=== PATIENT | female | born 1945 | race Caucasian/White ===

== ENCOUNTER 2018-01-15 06:13 | Day surgery (SDC) | payer MEDICARE, OTHER ==
[~2018-01-15 06:13] MED LIST: Bupivacaine 0.25% 30 ML SDV ONE; Iodine/Sodium Iodide 2% Tincture 30 ML Bottle ONE; Vancomycin 1 GM SDV ONE; ceFAZolin 1 GM Vial ONE
[2018-01-15] MEDS ORDERED: Scopolamine 1 MG Transdermal Patch TOP ONE (06:27)
[2018-01-15] MEDS ORDERED: Ketorolac 15 MG/ML SDV IVPUSH PRN (06:34)
[2018-01-15] MEDS ORDERED: Sennosides 8.6 MG Tab PO PRN (06:34)
[2018-01-15] MEDS ORDERED: diphenhydrAMINE 50 MG/ML SDV IVPUSH PRN (06:34)
[2018-01-15] MEDS ORDERED: Bisacodyl 5 MG Tab PO PRN (06:34)
[2018-01-15] MEDS ORDERED: Morphine 8 MG, EPINEPHrine 0.3 MG, Cefuroxime 750 MG, Ketorolac 30 MG, Sodium Chloride ... ONE ×5 (06:34)
[2018-01-15] MEDS ORDERED: Ondansetron 4 MG/2 ML SDV IVPUSH PRN ×2 (06:34→07:48)
[2018-01-15] MEDS ORDERED: Morphine 2 MG/ML Syringe IVPUSH PRN (06:34)
[2018-01-15] MEDS ORDERED: Cyclobenzaprine 10 MG Tab PO PRN (06:34)
[2018-01-15] MEDS ORDERED: Magnesium Hydroxide 400 MG/5 ML Susp 30 ML Cup PO PRN (06:34)
[2018-01-15] MEDS ORDERED: Naloxone 0.4 MG/ML SDV IVPUSH PRN (06:34)
--- NOTE | 2018-01-15 06:34 | PCM.PREANE ---
Preanesthetic Assessment - Anesthesia/Transfusion/Family Hx Anesthesia History: Prior Anesthesia Reaction Type of Anesthesia Reaction: Excessive Nausea/Vomiting Family History of Anesthesia Reaction: No Transfusion History: No Prior Transfusion(s) Type of Transfusion Reactions: Reports: Unknown - Review of Systems General: No Symptoms Pulmonary: No Symptoms Cardiovascular: No Symptoms Gastrointestinal: No Symptoms Neurological: No Symptoms Other: Reports: Easy Bruising, Diabetes - Physical Assessment NPO Status Date: 01/14/18 NPO Status Time: 21:00 Pulse: 82 O2 Sat by Pulse Oximetry: 92 Respiratory Rate: 16 Blood Pressure: 125/59 Temperature: 97.7 F Height: 5 ft 6 in Weight: 93.9 kg ASA Class: 2 Mental Status: Alert & Oriented x3 Airway Class: Mallampati = 1 Dentition: Reports: Normal Dentition Thyro-Mental Finger Breadths: 3 Mouth Opening Finger Breadths: 3 ROM/Head Extension: Full Lungs: Clear to Auscultation, Normal Respiratory Effort Cardiovascular: Regular Rate, Regular Rhythm - Lab Values: Laboratory Last Values PT 10.7 SECONDS (8.0-13.0) 01/03/18 11:21 INR 1.00 01/03/18 11:21 APTT 27 SECONDS (22-36) 01/03/18 11:21 MRSA (PCR) Negative 01/03/18 11:21 - Allergies Allergies/Adverse Reactions: Allergies Allergy/AdvReac Type Severity Reaction Status Date / Time No Known Allergies Allergy Verified 01/12/18 13:33 - Blood Blood Available: No - Acknowledgements Anesthesia Type Planned: Spinal Pt an Appropriate Candidate for the Planned Anesthesia: Yes Alternatives and Risks of Anesthesia Discussed w Pt/Guardian: Yes Pt/Guardian Understands and Agrees with Anesthesia Plan: Yes PreAnesthesia Questionnaire HEENT History: Reports: Impaired Vision Cardiovascular History: Reports: High Cholesterol, Hypertension Respiratory History: Reports: None Gastrointestinal History: Reports: None Genitourinary History: Reports: None 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: , 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 Musculoskeletal History: Reports: Arthritis, Osteoarthritis, Other (See Below) Other Musculoskeletal History: R hip and knee pain, low back pain Neurological History: Reports: None Psychiatric History: Reports: None Endocrine/Metabolic History: Reports: None, Diabetes, Type II Hematologic History: Reports: Other (See Below) Other Hematologic History: hypoalbuminemia Immunologic History: Reports: None Oncologic (Cancer) History: Reports: None Dermatologic History: Reports: None, Other (See Below) Other Dermatologic History: candidiasis - Past Surgical History HEENT Surgical History: Reports: None Cardiovascular Surgical History: Reports: None Respiratory Surgical History: Reports: None GI Surgical History: Reports: None Female Surgical History: Reports: None Male Surgical History: Reports: None Endocrine Surgical History: Reports: None Neurological Surgical History: Reports: None Musculoskeletal Surgical History: Reports: Knee Replacement, Shoulder Surgery Other Musculoskeletal Surgeries/Procedures:: Left and Right rotator cuff repair Oncologic Surgical History: Reports: None - SUBSTANCE USE Smoking Status *Q: Former Smoker Tobacco Use Within Last Twelve Months: No Second Hand Smoke Exposure: No Days Per Week of Alcohol Use: 0 Recreational Drug Use History: No - HOME MEDS Home Medications: Home Meds Aspirin [Adult Low Dose Aspirin EC] 81 mg PO DAILY 12/23/16 [History] Calcium Carb/Vitamin D3/Vit K1 [Viactiv Soft Chew] 1 tab PO DAILY 12/23/16 [ History] Calcium Carbonate [Calcium] 500 mg PO DAILY 12/23/16 [History] Hydrochlorothiazide/Lisinopril [Lisinopril/HCTZ 10-12.5 MG] 1 tab PO DAILY 12/23 [History] Pravastatin Sodium 20 mg PO BEDTIME 12/23/16 [History] Ubidecarenone [Co Q-10] 100 mg PO DAILY 12/23/16 [History] Cholecalciferol (Vitamin D3) [Vitamin D3] 2,000 unit PO DAILY 01/12/18 [History] Lutein/Minerals/Vit A,C & E [Ocuvite] 1 tab PO DAILY 01/12/18 [History] metFORMIN [Glucophage] 500 mg PO BID 01/12/18 [History] - CURRENT (IN HOUSE) MEDS Current Meds: Current Medications Lactated Ringer's (Ringers, Lactated) 1,000 mls @ 125 mls/hr IV ASDIRECTED AUDI Lidocaine/Sodium Bicarbonate (Buffered Lidocaine 1% In Ns 8.4%) 0.25 ml IDERM ONETIME PRN PRN Reason: Prior to IV Start Sodium Chloride (Saline Flush) 10 ml FLUSH ASDIRECTED PRN PRN Reason: Keep Vein Open Discontinued Medications Bupivacaine HCl (Marcaine 0.25%) Confirm Administered Dose 30 ml .ROUTE .STK- MED ONE Stop: 01/15/18 06:08 Cefazolin Sodium (Ancef) Confirm Administered Dose 2 gm .ROUTE .STK-MED ONE Stop: 01/15/18 06:07 Iodine (Iodine 2% Mild Tincture) Confirm Administered Dose 30 ml .ROUTE .STK- MED ONE Stop: 01/15/18 06:08 Tranexamic Acid (Cyklokapron) Confirm Administered Dose 1,000 mg .ROUTE .STK- MED ONE Stop: 01/15/18 06:07 Vancomycin HCl (Vancomycin) Confirm Administered Dose 1 gm .ROUTE .STK-MED ONE Stop: 01/15/18 06:07
[2018-01-15] MEDS ORDERED: EPINEPHrine 1 MG/ML SDV ONE (06:48)
[2018-01-15] MEDS ORDERED: Ropivacaine 0.5% 5 MG/ML 30 ML SDV ONE (06:48)
[2018-01-15] MEDS ORDERED: Lidocaine 1% 4 ML ONE (06:52)
[2018-01-15] MEDS ORDERED: Propofol 200 MG/20 ML SDV ONE ×4 (06:52→10:53)
[2018-01-15] MEDS ORDERED: Midazolam 1 MG/ML 2 ML SDV ONE (06:52)
[2018-01-15] MEDS ORDERED: ceFAZolin 1 GM Vial ONE (06:53)
[2018-01-15] MEDS ORDERED: Morphine PF 1 MG/ML Amp ONE (06:53)
[2018-01-15] MEDS ORDERED: Lidocaine 1%/Sod Bicarbonate in NS 8.4% 1 ML Syringe IDERM PRN (07:00)
[2018-01-15] MEDS ORDERED: Lactated Ringers 1,000 ML IV SCH (07:00)
[2018-01-15] MEDS ORDERED: Sodium Chloride 0.9% 10 ML Syringe FLUSH PRN (07:00)
[2018-01-15] MEDS ORDERED: Ondansetron 4 MG/2 ML SDV ONE ×2 (07:31→08:59)
[2018-01-15] MEDS ORDERED: Lidocaine 1% 2 ML ONE (07:33)
[2018-01-15] MEDS ORDERED: Lactated Ringers 1,000 ML ONE ×2 (07:34→08:26)
[2018-01-15] MEDS ORDERED: HYDROmorphone 0.5 MG/0.5 ML Syringe IVPUSH PRN (07:48)
[2018-01-15] MEDS ORDERED: Promethazine 6.25 MG in Sodium Chloride 0.9% 9 ML IV PRN (07:48)
[2018-01-15] MEDS ORDERED: fentaNYL 100 MCG/2 ML SDV IVPUSH PRN (07:48)
[2018-01-15] MEDS ORDERED: fentaNYL 250 MCG/5 ML SDV ONE (08:40)
--- NOTE | 2018-01-15 08:45 | PCM.CONS ---
H&P History of Present Illness - General Date of Service: 01/15/18 Admit Problem/Dx: Admission Diagnosis/Problem Admission Diagnosis/Problem Osteoarthritis of knee Source of Information: Patient, Provider, RN, RN Notes Reviewed, Other ( Surgical notes ) History Limitations: Reports: No Limitations - History of Present Illness Initial Comments - Free Text/Narative: Zulema Shirley is a 72 yo female patient of Dr. Shankar who is post-operative day 0 of right TKA. Hospital medicine was consulted for post-operative medical care. At this time she is is sitting comfortably in bed. Pain is controlled. She denies any chest pain, shortness of breath, palpitations, nausea, or vomiting. She carries a history of: HLD, HTN, arthritis, osteoporosis, low back pain, type II DM, hypoalbuminemia. She is a former smoker. She is a full code. Her primary care provider is Dr. Laboy at [facility]. Right Knee Pain Score (Numeric/FACES): 5 - Related Data Allergies/Adverse Reactions: Allergies Allergy/AdvReac Type Severity Reaction Status Date / Time No Known Allergies Allergy Verified 01/12/18 13:33 Home Medications: Home Meds Aspirin [Adult Low Dose Aspirin EC] 81 mg PO DAILY 12/23/16 [History] Calcium Carb/Vitamin D3/Vit K1 [Viactiv Soft Chew] 1 tab PO DAILY 12/23/16 [ History] Calcium Carbonate [Calcium] 500 mg PO DAILY 12/23/16 [History] Hydrochlorothiazide/Lisinopril [Lisinopril/HCTZ 10-12.5 MG] 1 tab PO DAILY 12/23 [History] Pravastatin Sodium 20 mg PO BEDTIME 12/23/16 [History] Ubidecarenone [Co Q-10] 100 mg PO DAILY 12/23/16 [History] Cholecalciferol (Vitamin D3) [Vitamin D3] 2,000 unit PO DAILY 01/12/18 [History] Lutein/Minerals/Vit A,C & E [Ocuvite] 1 tab PO DAILY 01/12/18 [History] metFORMIN [Glucophage] 500 mg PO BID 01/12/18 [History] Past Medical History HEENT History: Reports: Impaired Vision Cardiovascular History: Reports: High Cholesterol, Hypertension Respiratory History: Reports: None Gastrointestinal History: Reports: None Genitourinary History: Reports: None 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: , 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 Musculoskeletal History: Reports: Arthritis, Osteoarthritis, Other (See Below) Other Musculoskeletal History: R hip and knee pain, low back pain Neurological History: Reports: None Psychiatric History: Reports: None Endocrine/Metabolic History: Reports: None, Diabetes, Type II Hematologic History: Reports: Other (See Below) Other Hematologic History: hypoalbuminemia Immunologic History: Reports: None Oncologic (Cancer) History: Reports: None Dermatologic History: Reports: None, Other (See Below) Other Dermatologic History: candidiasis - Past Surgical History HEENT Surgical History: Reports: None Cardiovascular Surgical History: Reports: None Respiratory Surgical History: Reports: None GI Surgical History: Reports: None Female Surgical History: Reports: None Male Surgical History: Reports: None Endocrine Surgical History: Reports: None Neurological Surgical History: Reports: None Musculoskeletal Surgical History: Reports: Knee Replacement, Shoulder Surgery Other Musculoskeletal Surgeries/Procedures:: Left and Right rotator cuff repair Oncologic Surgical History: Reports: None Social & Family History - Tobacco Use Smoking Status *Q: Former Smoker Used Tobacco, but Quit: Yes Month Tobacco Last Used: 1974 Second Hand Smoke Exposure: No - Caffeine Use Caffeine Use: Reports: Coffee - Alcohol Use Days Per Week of Alcohol Use: 0 - Recreational Drug Use Recreational Drug Use: No Drug Use in Last 12 Months: No H&P Review of Systems - Review of Systems: Review Of Systems: See Below General: Reports: No Symptoms HEENT: Reports: No Symptoms Pulmonary: Reports: No Symptoms Cardiovascular: Reports: No Symptoms Gastrointestinal: Reports: No Symptoms Genitourinary: Reports: No Symptoms Musculoskeletal: Reports: Joint Pain Skin: Reports: No Symptoms Psychiatric: Reports: No Symptoms Neurological: Reports: No Symptoms Hematologic/Lymphatic: Reports: No Symptoms Immunologic: Reports: No Symptoms Exam - Exam Exam: See Below - Vital Signs Vital Signs: Last Vital Signs Temp 97.7 F 01/15/18 06:34 Pulse 82 01/15/18 06:34 Resp 16 01/15/18 06:34 BP 125/59 L 01/15/18 06:34 Pulse Ox 92 L 01/15/18 06:34 Weight: 207 lb - Exam Quality Assessment: Supplemental Oxygen, Urinary Catheter, DVT Prophylaxis General: Alert, Oriented, Cooperative. No: Mild Distress HEENT: PERRLA, Hearing Intact, Mucosa Moist & Finklea, Nares Patent, Normal Nasal Septum, Posterior Pharynx Clear, Conjunctiva Clear, EOMI, EACs Clear, TMs Clear Neck: Supple, Trachea Midline Lungs: Clear to Auscultation, Normal Respiratory Effort Cardiovascular: Regular Rate, Regular Rhythm GI/Abdominal Exam: Normal Bowel Sounds, Soft, Non-Tender, No Organomegaly, No Distention, No Abnormal Bruit, No Mass, Pelvis Stable (Female) Exam: Deferred Rectal (Female) Exam: Deferred Back Exam: Normal Inspection, Full Range of Motion Extremities: No Pedal Edema, Normal Capillary Refill, Leg Pain, Limited Range of Motion, Other (JONES Bandage in place on right leg. Bandage is dry and intact. Brandon pack in place. ) Peripheral Pulses: 2+: Radial (L), Radial (R), Posterior Tibial (L), Posterior Tibial (R), Dorsalis Pedis (L), Dorsalis Pedis (R) Skin: Warm, Dry, Intact Neurological: Cranial Nerves Intact (grossly) Neuro Extensive - Mental Status: Alert, Oriented x3, Normal Mood/Affect, Normal Cognition, Memory Intact Psychiatric: Alert, Normal Affect, Normal Mood - Patient Data Lab Results Last 24 hrs: Laboratory Results - last 24 hr 01/15/18 Range/Units 06:32 POC Glucose 126 H (80-115) mg/dL Consult PN Assessment/Plan POD#: 0 Procedures: Procedures AQUATIC THERAPY/EXERCISES (02/23/17) ASSAY OF FERRITIN (12/01/16) ASSAY OF PREALBUMIN (11/24/17) ASSAY OF SERUM ALBUMIN (11/24/17) ASSAY THYROID STIM HORMONE (04/28/16) CARDIOVASCULAR STRESS TEST (12/15/17) CHEST X-RAY 2VW FRONTAL&LATL (12/01/16) COMPLETE CBC AUTOMATED (04/28/16) COMPLETE CBC W/AUTO DIFF WBC (11/24/17) COMPREHEN METABOLIC PANEL (01/02/18) GAIT TRAINING THERAPY (12/26/16) GLUCOSE BLOOD TEST (12/26/16) GLYCOSYLATED HEMOGLOBIN TEST (11/24/17) HT MUSCLE IMAGE SPECT MULT (12/15/17) INFLUENZA ASSAY W/OPTIC (11/28/17) LIPID PANEL (04/28/16) MANUAL THERAPY 1/> REGIONS (02/23/17) MASSAGE THERAPY (02/09/17) MEASURE BLOOD OXYGEN LEVEL (12/26/16) METABOLIC PANEL TOTAL CA (11/24/17) MR-STAPH DNA AMP PROBE (12/26/16) NEUROMUSCULAR REEDUCATION (02/23/17) OFFICE/OUTPATIENT VISIT EST (04/28/16) OT EVAL LOW COMPLEX 30 MIN (12/26/16) PROTHROMBIN TIME (12/01/16) PT EVAL LOW COMPLEX 20 MIN (01/09/17) ROUTINE VENIPUNCTURE (01/02/18) SELF CARE MNGMENT TRAINING (12/26/16) THERAPEUTIC EXERCISES (02/23/17) THROMBOPLASTIN TIME PARTIAL (12/01/16) URINE BACTERIA CULTURE (06/26/14) VITAMIN D 25 HYDROXY (12/01/16) X-RAY EXAM L-2 SPINE 4/>VWS (04/28/16) X-RAY EXAM OF KNEE 1 OR 2 (12/26/16) X-RAY EXAM OF KNEES (04/28/16) (1) S/P total knee arthroplasty SNOMED Code(s): 7074042199836, 2924754290866 Code(s): Z96.659 - PRESENCE OF UNSPECIFIED ARTIFICIAL KNEE JOINT Priority: High Current Visit: Yes Qualifiers: Laterality: right Qualified Code(s): Z96.651 - Presence of right artificial knee joint (2) Osteoarthritis SNOMED Code(s): 057411319 Code(s): M19.90 - UNSPECIFIED OSTEOARTHRITIS, UNSPECIFIED SITE Priority: High Current Visit: Yes Qualifiers: Osteoarthritis location: knee Osteoarthritis type: primary Laterality: right Qualified Code(s): M17.11 - Unilateral primary osteoarthritis, right knee (3) Type II diabetes mellitus SNOMED Code(s): 07892565 Code(s): E11.9 - TYPE 2 DIABETES MELLITUS WITHOUT COMPLICATIONS Priority: Medium Current Visit: Yes Qualifiers: Diabetes mellitus complication status: with unspecified complications Diabetes mellitus senior living insulin use: without senior living use Qualified Code( s): E11.8 - Type 2 diabetes mellitus with unspecified complications (4) Hypoalbuminemia SNOMED Code(s): 047941969 Code(s): E88.09 - OTH DISORDERS OF PLASMA-PROTEIN METABOLISM, NEC Priority : Low Current Visit: No (5) HLD (hyperlipidemia) SNOMED Code(s): 81099250 Code(s): E78.5 - HYPERLIPIDEMIA, UNSPECIFIED Priority: Low Current Visit : No Qualifiers: Hyperlipidemia type: unspecified Qualified Code(s): E78.5 - Hyperlipidemia , unspecified (6) HTN (hypertension) SNOMED Code(s): 88681902 Code(s): I10 - ESSENTIAL (PRIMARY) HYPERTENSION Priority: Low Current Visit: No Qualifiers: Hypertension type: essential hypertension Qualified Code(s): I10 - Essential (primary) hypertension Problem List Initiated/Reviewed/Updated: Yes Plan: I/P: Acute: S/P right total knee arthroplasty - post-operative day 0 -DVT prophylaxis and pain management per primary care team -PT/OT -IS/RT -Monitor oxygen saturation -Titrate oxygen as needed -Vital signs stable -Monitor labs -Pre-operative Hgb was 13.5 -Pre-operative A1C was 6.7 Osteoarthritis of right knee -Pain management per primary care team Chronic: HLD HTN Arthritis Chronic low back pain Type II DM hypoalbuminemia Plan: CM for discharge planning GI prophylaxis Home medications as indicated Other orders as listed above Routine AM labs She is a full code. Her PCP is Dr. Laboy at [facility]. Thank you for allowing us to participate in the care of this patient!! Requesting Provider: Dr. Shankar Date Consult Requested: 01/15/18 Reason for Consult: Post-operative medical management Patient History Reviewed: Yes Admission H&P Reviewed: Yes Time Spent (in minutes): 30
--- NOTE | 2018-01-15 09:21 | PCM.POSTAN ---
POST ANESTHESIA ASSESSMENT - MENTAL STATUS Mental Status: Alert, Oriented - VITAL SIGNS Pulse Rate: 84 SaO2: 100 Resp Rate: 20 Blood Pressure: 126/82 Temperature: 97.4 F - RESPIRATORY Respiratory Status: Respiratory Rate WNL, Airway Patent, O2 Saturation Stable, Supplemental Oxygen - CARDIOVASCULAR CV Status: Pulse Rate WNL, Blood Pressure Stable - GASTROINTESTINAL GI Status: No Symptoms - PAIN Pain Score: 8 (receiving fentanyl)
--- NOTE | 2018-01-15 11:21 | CR ---
Right knee: Two views of the right knee were obtained. Comparison: Previous knee exam of 04/28/16. Knee prosthesis is seen. Components are aligned. Soft tissue air is noted from the surgical procedures. Underlying bony structures are intact. Impression: 1. Satisfactory appearance of recently placed right knee prosthesis. Diagnostic code #2
[2018-01-15] MEDS: Famotidine 20 MG Tab PO SCH ×2 (13:20→20:11)
[2018-01-15] MEDS: ceFAZolin 2 GM in Premix Bag 1 BAG IV SCH ×2 (14:29→22:34)
--- NOTE | 2018-01-15 14:55 | PCM.SN ---
- Free Text/Narrative Note: Right selective femoral nerve block at the adductor canal for post-procedure pain control under US guidance requested by Dr. Shankar. Time Out: 920 Start: 920 End: 925 Chart reviewed. Consent signed. Questions answered. Appropriate monitors applied. Time out performed. Right mid-shaft femur identified with ultrasound, scanning medially of femur, the femoral artery in the adductor canal visualized , and the femoral nerve located laterally to the artery. The skin was prepped lateral to the ultrasound probe with chlorahexadine. The 21ga 4 insulated block needle was inserted under direct ultrasound guidance into the adductor canal. 25mL of 0.5% ropivacaine with 1:200,000 epinephrine was injected circumferentially around the nerve with intermittent negative aspiration noted. Patient tolerated the procedure well. See pictures on progress note and vital signs on nurses notes. Block completed in PACU. Quang Bravo CRNA
[2018-01-15] MEDS: Acetaminophen/oxyCODONE 325-5 MG Tab PO PRN ×2 (16:45→23:04)
[2018-01-15] MEDS: metFORMIN 500 MG Tab PO SCH (16:46)
[2018-01-15] MEDS: Docusate Sodium 100 MG Cap PO SCH (20:11)
[2018-01-15] MEDS ORDERED: Simvastatin 10 MG Tab PO SCH (21:00)
[2018-01-16] MEDS: Acetaminophen/oxyCODONE 325-5 MG Tab PO PRN ×2 (05:35→13:38)
[2018-01-16] MEDS: ceFAZolin 2 GM in Premix Bag 1 BAG IV SCH (06:30)
[2018-01-16] MEDS: metFORMIN 500 MG Tab PO SCH (06:31)
--- NOTE | 2018-01-16 06:37 | PCM.CONSN ---
- General Info Date of Service: 01/16/18 Admission Dx/Problem (Free Text): Admission Diagnosis/Problem Admission Diagnosis/Problem Osteoarthritis of knee Subjective Update: In to see Zulema. She is lying in bed. She just finished working with PT/OT. She just had a shower. No concerns noted. She is doing very well. She is urinating. Pain is controlled at 4-5 out of 10. Functional Status: Reports: Pain Controlled, Tolerating Diet, Ambulating, Urinating, Incentive Spirometry. Denies: New Symptoms - Review of Systems General: Reports: No Symptoms. Denies: Weakness HEENT: Reports: No Symptoms Pulmonary: Reports: No Symptoms. Denies: Shortness of Breath, Cough, Sputum, Wheezing Cardiovascular: Reports: No Symptoms. Denies: Chest Pain, Palpitations, Dyspnea on Exertion Gastrointestinal: Reports: No Symptoms. Denies: Abdominal Pain, Constipation, Diarrhea, Nausea, Vomiting Genitourinary: Reports: No Symptoms. Denies: Dysuria, Frequency, Burning, Pain Musculoskeletal: Reports: Joint Pain (right knee) Skin: Reports: No Symptoms Neurological: Reports: No Symptoms Psychiatric: Reports: No Symptoms - Patient Data Vitals - Most Recent: Last Vital Signs Temp 98.8 F 01/16/18 01:38 Pulse 88 01/16/18 01:38 Resp 18 01/16/18 01:38 BP 136/70 01/16/18 01:38 Pulse Ox 97 01/16/18 01:38 Weight - Most Recent: 207 lb I&O - Last 24 Hours: Intake & Output 01/15/18 01/15/18 01/16/18 14:59 22:59 06:59 Intake Total 250 180 Output Total 210 Balance 40 180 Lab Results Last 24 Hours: Laboratory Results - last 24 hr 01/15/18 Range/Units 06:32 POC Glucose 126 H (80-115) mg/dL Med Orders - Current: Current Medications Aspirin (Ecotrin) 325 mg PO BID [facility] Bisacodyl (Dulcolax) 5 mg PO DAILY PRN PRN Reason: Constipation Calcium Carbonate/Glycine (Calcium Carbonate) 600 mg PO DAILY [facility] Cholecalciferol (Vitamin D3) 2,000 units PO DAILY [facility] Cyclobenzaprine HCl (Flexeril) 10 mg PO TID PRN PRN Reason: Spasms Last Admin: 01/15/18 23:05 Dose: 10 mg Diphenhydramine HCl (Benadryl) 25 mg IVPUSH Q4H PRN PRN Reason: Nausea Docusate Sodium (Colace) 100 mg PO BID [facility] Last Admin: 01/15/18 20:11 Dose: 100 mg Famotidine (Pepcid) 20 mg PO Q12H [facility] Last Admin: 01/15/18 20:11 Dose: 20 mg Hydrochlorothiazide (Hydrochlorothiazide) 12.5 mg PO DAILY [facility] Cefazolin Sodium/Dextrose 2 gm (/ Premix) 50 mls @ 100 mls/hr IV Q8H [facility] Stop: 01/16/18 07:29 Last Admin: 01/16/18 06:30 Dose: 100 mls/hr Ketorolac Tromethamine (Toradol) 15 mg IVPUSH Q6H PRN PRN Reason: Pain Last Admin: 01/16/18 05:43 Dose: 15 mg Lisinopril (Prinivil) 10 mg PO DAILY [facility] Magnesium Hydroxide (Milk Of Magnesia) 30 ml PO BID PRN PRN Reason: Constipation Metformin HCl (Glucophage) 500 mg PO BIDMEALS [facility] Last Admin: 01/16/18 06:31 Dose: 500 mg Morphine Sulfate (Morphine) 2 mg IVPUSH Q2H PRN PRN Reason: Breakthrough Pain Naloxone HCl (Narcan) 0.1 mg IVPUSH Q5M PRN PRN Reason: Oversedation Ondansetron HCl (Zofran) 4 mg IVPUSH Q6H PRN PRN Reason: Nausea/Vomiting Oxycodone/Acetaminophen (Percocet 325-5 Mg) 1 - 2 tab PO Q4H PRN PRN Reason: Pain Last Admin: 01/16/18 05:35 Dose: 2 tab Rivaroxaban (Xarelto) 10 mg PO DAILY [facility] Senna (Senna) 8.6 mg PO BID PRN PRN Reason: Constipation Simvastatin (Zocor) 10 mg PO BEDTIME [facility] Last Admin: 01/15/18 20:11 Dose: 10 mg Discontinued Medications Bupivacaine HCl (Marcaine 0.25%) Confirm Administered Dose 30 ml .ROUTE .STK- MED ONE Stop: 01/15/18 06:08 Last Admin: 01/15/18 08:33 Dose: 30 ml Cefazolin Sodium (Ancef) Confirm Administered Dose 2 gm .ROUTE .STK-MED ONE Stop: 01/15/18 06:07 Last Admin: 01/15/18 08:29 Dose: 2 gm Cefazolin Sodium (Ancef) Confirm Administered Dose 2 gm .ROUTE .STK-MED ONE Stop: 01/15/18 06:54 Morphine Sulfate 8 mg/Epinephrine HCl 0.3 mg/Cefuroxime Sodium 750 mg/Ketorolac Tromethamine 30 mg/Sodium Chloride 27.9 ml 0 mg .XX ONETIME ONE Stop: 01/15/18 06:35 Last Admin: 01/15/18 08:32 Dose: 788.3 mg Epinephrine HCl (Adrenalin) Confirm Administered Dose 1 mg .ROUTE .STK-MED ONE Stop: 01/15/18 06:49 Fentanyl (Sublimaze) 50 mcg IVPUSH Q5M PRN PRN Reason: Pain Stop: 01/15/18 10:00 Fentanyl (Sublimaze) Confirm Administered Dose 250 mcg .ROUTE .STK-MED ONE Stop: 01/15/18 08:41 Hydromorphone HCl (Dilaudid) 0.5 mg IVPUSH Q15M PRN PRN Reason: severe pain Stop: 01/15/18 10:00 Last Admin: 01/15/18 09:46 Dose: 0.5 mg Lactated Ringer's (Ringers, Lactated) 1,000 mls @ 125 mls/hr IV ASDIRECTED [facility] Stop: 01/15/18 23:00 Last Admin: 01/15/18 06:40 Dose: 125 mls/hr Lidocaine HCl (Xylocaine-Mpf 1%) Confirm Administered Dose 4 mls @ as directed .ROUTE .STK-MED ONE Stop: 01/15/18 06:53 Lidocaine HCl (Xylocaine-Mpf 1%) Confirm Administered Dose 2 mls @ as directed .ROUTE .STK-MED ONE Stop: 01/15/18 07:34 Lactated Ringer's (Ringers, Lactated) Confirm Administered Dose 1,000 mls @ as directed .ROUTE .STK-MED ONE Stop: 01/15/18 07:35 Promethazine HCl 6.25 mg/ (Sodium Chloride) 9.25 mls @ 5 mls/min IV ONETIME PRN PRN Reason: Nausea Stop: 01/15/18 11:00 Lactated Ringer's (Ringers, Lactated) Confirm Administered Dose 1,000 mls @ as directed .ROUTE .STK-MED ONE Stop: 01/15/18 08:27 Iodine (Iodine 2% Mild Tincture) Confirm Administered Dose 30 ml .ROUTE .STK- MED ONE Stop: 01/15/18 06:08 Last Admin: 01/15/18 08:26 Dose: 18 ml Lidocaine/Sodium Bicarbonate (Buffered Lidocaine 1% In Ns 8.4%) 0.25 ml IDERM ONETIME PRN PRN Reason: Prior to IV Start Stop: 01/15/18 18:00 Last Admin: 01/15/18 06:40 Dose: 0.25 ml Midazolam HCl (Versed 1 Mg/Ml) Confirm Administered Dose 2 mg .ROUTE .STK-MED ONE Stop: 01/15/18 06:53 Morphine Sulfate (Duramorph Pf) Confirm Administered Dose 1 mg .ROUTE .STK-MED ONE Stop: 01/15/18 06:54 Non-Formulary Medication (Ubidecarenone) 100 mg PO DAILY [facility] Ondansetron HCl (Zofran) Confirm Administered Dose 4 mg .ROUTE .STK-MED ONE Stop: 01/15/18 07:32 Ondansetron HCl (Zofran) 4 mg IVPUSH ONETIME PRN PRN Reason: Nausea/Vomiting Stop: 01/15/18 10:00 Ondansetron HCl (Zofran) Confirm Administered Dose 4 mg .ROUTE .STK-MED ONE Stop: 01/15/18 09:00 Propofol (Diprivan 20 Ml) Confirm Administered Dose 200 mg .ROUTE .STK-MED ONE Stop: 01/15/18 06:53 Propofol (Diprivan 20 Ml) Confirm Administered Dose 400 mg .ROUTE .STK-MED ONE Stop: 01/15/18 06:54 Propofol (Diprivan 20 Ml) Confirm Administered Dose 200 mg .ROUTE .STK-MED ONE Stop: 01/15/18 07:00 Propofol (Diprivan 20 Ml) Confirm Administered Dose 200 mg .ROUTE .STK-MED ONE Stop: 01/15/18 10:54 Ropivacaine (Naropin 0.5%) Confirm Administered Dose 30 ml .ROUTE .STK-MED ONE Stop: 01/15/18 06:49 Scopolamine (Scopolamine) 1 each TOP ONETIME ONE Stop: 01/15/18 06:28 Last Admin: 01/15/18 06:47 Dose: 1 each Sodium Chloride (Saline Flush) 10 ml FLUSH ASDIRECTED PRN PRN Reason: Keep Vein Open Stop: 01/15/18 18:00 Tranexamic Acid (Cyklokapron) Confirm Administered Dose 1,000 mg .ROUTE .STK- MED ONE Stop: 01/15/18 06:07 Last Admin: 01/15/18 08:38 Dose: 1,000 mg Vancomycin HCl (Vancomycin) Confirm Administered Dose 1 gm .ROUTE .STK-MED ONE Stop: 01/15/18 06:07 Last Admin: 01/15/18 08:36 Dose: 1 gm - Exam Quality Assessment: DVT Prophylaxis General: Alert, Oriented, Cooperative, No Acute Distress HEENT: Pupils Equal, Pupils Reactive, EOMI, Mucous Membr. Moist/[place] Neck: Supple, Trachea Midline, No JVD Lungs: Clear to Auscultation, Normal Respiratory Effort Cardiovascular: Regular Rate, Regular Rhythm GI/Abdominal Exam: Normal Bowel Sounds, Soft, Non-Tender, No Organomegaly, No Distention, No Abnormal Bruit, No Mass, Pelvis Stable Back Exam: Full Range of Motion Extremities: No Pedal Edema, Normal Capillary Refill, Leg Pain, Limited Range of Motion, Other (JONES bandage and cooling pack in place on right knee. ) Peripheral Pulses: 2+: Radial (L), Radial (R), Posterior Tibial (L), Posterior Tibial (R), Dorsalis Pedis (L), Dorsalis Pedis (R) Skin: Warm, Dry, Intact Wound/Incisions: Dressing Dry and Intact, No Drainage Neurological: No New Focal Deficit Psy/Mental Status: Alert, Normal Affect, Normal Mood Consult PN Assessment/Plan POD#: 1 Procedures: Procedures AQUATIC THERAPY/EXERCISES (02/23/17) ASSAY OF FERRITIN (12/01/16) ASSAY OF PREALBUMIN (11/24/17) ASSAY OF SERUM ALBUMIN (11/24/17) ASSAY THYROID STIM HORMONE (04/28/16) CARDIOVASCULAR STRESS TEST (12/15/17) CHEST X-RAY 2VW FRONTAL&LATL (12/01/16) COMPLETE CBC AUTOMATED (04/28/16) COMPLETE CBC W/AUTO DIFF WBC (11/24/17) COMPREHEN METABOLIC PANEL (01/02/18) GAIT TRAINING THERAPY (12/26/16) GLUCOSE BLOOD TEST (12/26/16) GLYCOSYLATED HEMOGLOBIN TEST (11/24/17) HT MUSCLE IMAGE SPECT MULT (12/15/17) INFLUENZA ASSAY W/OPTIC (11/28/17) LIPID PANEL (04/28/16) MANUAL THERAPY 1/> REGIONS (02/23/17) MASSAGE THERAPY (02/09/17) MEASURE BLOOD OXYGEN LEVEL (12/26/16) METABOLIC PANEL TOTAL CA (11/24/17) MR-STAPH DNA AMP PROBE (12/26/16) NEUROMUSCULAR REEDUCATION (02/23/17) OFFICE/OUTPATIENT VISIT EST (04/28/16) OT EVAL LOW COMPLEX 30 MIN (12/26/16) PROTHROMBIN TIME (12/01/16) PT EVAL LOW COMPLEX 20 MIN (01/09/17) ROUTINE VENIPUNCTURE (01/02/18) SELF CARE MNGMENT TRAINING (12/26/16) THERAPEUTIC EXERCISES (02/23/17) THROMBOPLASTIN TIME PARTIAL (12/01/16) URINE BACTERIA CULTURE (06/26/14) VITAMIN D 25 HYDROXY (12/01/16) X-RAY EXAM L-2 SPINE 4/>VWS (04/28/16) X-RAY EXAM OF KNEE 1 OR 2 (12/26/16) X-RAY EXAM OF KNEES (04/28/16) (1) S/P total knee arthroplasty SNOMED Code(s): 1934885820139, 1511608726064 Code(s): Z96.659 - PRESENCE OF UNSPECIFIED ARTIFICIAL KNEE JOINT Priority: High Current Visit: Yes Qualifiers: Laterality: right Qualified Code(s): Z96.651 - Presence of right artificial knee joint (2) Osteoarthritis SNOMED Code(s): 611968143 Code(s): M19.90 - UNSPECIFIED OSTEOARTHRITIS, UNSPECIFIED SITE Priority: High Current Visit: Yes Qualifiers: Osteoarthritis location: knee Osteoarthritis type: primary Laterality: right Qualified Code(s): M17.11 - Unilateral primary osteoarthritis, right knee (3) Type II diabetes mellitus SNOMED Code(s): 05838519 Code(s): E11.9 - TYPE 2 DIABETES MELLITUS WITHOUT COMPLICATIONS Priority: Medium Current Visit: Yes Qualifiers: Diabetes mellitus complication status: with unspecified complications Diabetes mellitus bed bug exterminator insulin use: without fpc use Qualified Code( s): E11.8 - Type 2 diabetes mellitus with unspecified complications (4) Hypoalbuminemia SNOMED Code(s): 203665283 Code(s): E88.09 - OTH DISORDERS OF PLASMA-PROTEIN METABOLISM, NEC Priority : Low Current Visit: No (5) HLD (hyperlipidemia) SNOMED Code(s): 10865516 Code(s): E78.5 - HYPERLIPIDEMIA, UNSPECIFIED Priority: Low Current Visit : No Qualifiers: Hyperlipidemia type: unspecified Qualified Code(s): E78.5 - Hyperlipidemia , unspecified (6) HTN (hypertension) SNOMED Code(s): 09793279 Code(s): I10 - ESSENTIAL (PRIMARY) HYPERTENSION Priority: Low Current Visit: No Qualifiers: Hypertension type: essential hypertension Qualified Code(s): I10 - Essential (primary) hypertension Problem List Initiated/Reviewed/Updated: Yes Plan: I/P: Acute: S/P right total knee arthroplasty - post-operative day 1 -DVT prophylaxis and pain management per primary care team -PT/OT -IS/RT -Monitor oxygen saturation -Titrate oxygen as needed -Vital signs stable -Monitor labs -Pre-operative Hgb was 13.5, 11.6 now -Pre-operative A1C was 6.7 Osteoarthritis of right knee -Pain management per primary care team Chronic: HLD HTN Arthritis Chronic low back pain Type II DM hypoalbuminemia Plan: CM for discharge planning GI prophylaxis Home medications as indicated Other orders as listed above Routine AM labs She is a full code. Her PCP is Dr. Laboy at [facility]. From a hospitalist standpoint she is cleared for discharge pending primary orthopedic team agreement. Thank you for allowing us to participate in the care of this patient!!
--- NOTE | 2018-01-16 08:38 | PCM.SURGPN ---
- General Info Date of Service: 01/16/18 POD#: 1 Functional Status: Reports: Pain Controlled, Tolerating Diet, Ambulating, Urinating, Incentive Spirometry - Review of Systems Musculoskeletal: Reports: Other (The pt has met inpatient therapy goals.) - Patient Data Vitals - Most Recent: Last Vital Signs Temp 98.2 F 01/16/18 04:37 Pulse 80 01/16/18 04:54 Resp 16 01/16/18 06:00 BP 135/69 01/16/18 04:37 Pulse Ox 96 01/16/18 06:00 Weight - Most Recent: 207 lb I&O - Last 24 Hours: Intake & Output 01/15/18 01/16/18 01/16/18 22:59 06:59 14:59 Intake Total 180 Balance 180 Lab Results Last 24 Hrs: Laboratory Results - last 24 hr 01/16/18 01/16/18 01/16/18 Range/Units 05:52 05:52 07:43 WBC 8.04 (3.98-10.04) K/mm3 RBC 4.00 (3.98-5.22) M/mm3 Hgb 11.6 (11.2-15.7) gm/L Hct 35.8 (34.1-44.9) % MCV 89.5 (79.4-94.8) fl MCH 29.0 (25.6-32.2) pg MCHC 32.4 (32.2-35.5) g/dl RDW Std Deviation 40.9 (36.4-46.3) fL Plt Count 253 (182-369) K/mm3 MPV 10.5 (9.4-12.3) fl Sodium 137 (136-145) mEq/L Potassium 4.5 (3.5-5.1) mEq/L Chloride 100 (98-107) mEq/L Carbon Dioxide 27 (21-32) mEq/L Anion Gap 14.5 (5-15) BUN 11 (7-18) mg/dL Creatinine 0.7 (0.55-1.02) mg/dL Est Cr Clr Drug Dosing 70.01 mL/min Estimated GFR (MDRD) > 60 (>60) mL/min BUN/Creatinine Ratio 15.7 (14-18) Glucose 150 H (80-115) mg/dL POC Glucose 139 H (80-115) mg/dL Calcium 8.5 (8.5-10.1) mg/dL Total Bilirubin 0.9 (0.2-1.0) mg/dL AST 18 (15-37) U/L ALT 12 L (14-59) U/L Alkaline Phosphatase 56 (46-116) U/L Total Protein 6.6 (6.4-8.2) g/dl Albumin 2.7 L (3.4-5.0) g/dl Globulin 3.9 gm/dL Albumin/Globulin Ratio 0.7 L (1-2) Med Orders - Current: Current Medications Aspirin (Ecotrin) 325 mg PO BID [facility] Bisacodyl (Dulcolax) 5 mg PO DAILY PRN PRN Reason: Constipation Calcium Carbonate/Glycine (Calcium Carbonate) 600 mg PO DAILY [facility] Cholecalciferol (Vitamin D3) 2,000 units PO DAILY [facility] Cyclobenzaprine HCl (Flexeril) 10 mg PO TID PRN PRN Reason: Spasms Last Admin: 01/15/18 23:05 Dose: 10 mg Diphenhydramine HCl (Benadryl) 25 mg IVPUSH Q4H PRN PRN Reason: Nausea Docusate Sodium (Colace) 100 mg PO BID [facility] Last Admin: 01/15/18 20:11 Dose: 100 mg Famotidine (Pepcid) 20 mg PO Q12H [facility] Last Admin: 01/15/18 20:11 Dose: 20 mg Hydrochlorothiazide (Hydrochlorothiazide) 12.5 mg PO DAILY [facility] Ketorolac Tromethamine (Toradol) 15 mg IVPUSH Q6H PRN PRN Reason: Pain Last Admin: 01/16/18 05:43 Dose: 15 mg Lisinopril (Prinivil) 10 mg PO DAILY [facility] Magnesium Hydroxide (Milk Of Magnesia) 30 ml PO BID PRN PRN Reason: Constipation Metformin HCl (Glucophage) 500 mg PO BIDMEALS [facility] Last Admin: 01/16/18 06:31 Dose: 500 mg Morphine Sulfate (Morphine) 2 mg IVPUSH Q2H PRN PRN Reason: Breakthrough Pain Naloxone HCl (Narcan) 0.1 mg IVPUSH Q5M PRN PRN Reason: Oversedation Ondansetron HCl (Zofran) 4 mg IVPUSH Q6H PRN PRN Reason: Nausea/Vomiting Oxycodone/Acetaminophen (Percocet 325-5 Mg) 1 - 2 tab PO Q4H PRN PRN Reason: Pain Last Admin: 01/16/18 05:35 Dose: 2 tab Rivaroxaban (Xarelto) 10 mg PO DAILY [facility] Senna (Senna) 8.6 mg PO BID PRN PRN Reason: Constipation Simvastatin (Zocor) 10 mg PO BEDTIME [facility] Last Admin: 01/15/18 20:11 Dose: 10 mg Discontinued Medications Bupivacaine HCl (Marcaine 0.25%) Confirm Administered Dose 30 ml .ROUTE .STK- MED ONE Stop: 01/15/18 06:08 Last Admin: 01/15/18 08:33 Dose: 30 ml Cefazolin Sodium (Ancef) Confirm Administered Dose 2 gm .ROUTE .STK-MED ONE Stop: 01/15/18 06:07 Last Admin: 01/15/18 08:29 Dose: 2 gm Cefazolin Sodium (Ancef) Confirm Administered Dose 2 gm .ROUTE .STK-MED ONE Stop: 01/15/18 06:54 Morphine Sulfate 8 mg/Epinephrine HCl 0.3 mg/Cefuroxime Sodium 750 mg/Ketorolac Tromethamine 30 mg/Sodium Chloride 27.9 ml 0 mg .XX ONETIME ONE Stop: 01/15/18 06:35 Last Admin: 01/15/18 08:32 Dose: 788.3 mg Epinephrine HCl (Adrenalin) Confirm Administered Dose 1 mg .ROUTE .STK-MED ONE Stop: 01/15/18 06:49 Fentanyl (Sublimaze) 50 mcg IVPUSH Q5M PRN PRN Reason: Pain Stop: 01/15/18 10:00 Fentanyl (Sublimaze) Confirm Administered Dose 250 mcg .ROUTE .STK-MED ONE Stop: 01/15/18 08:41 Hydromorphone HCl (Dilaudid) 0.5 mg IVPUSH Q15M PRN PRN Reason: severe pain Stop: 01/15/18 10:00 Last Admin: 01/15/18 09:46 Dose: 0.5 mg Lactated Ringer's (Ringers, Lactated) 1,000 mls @ 125 mls/hr IV ASDIRECTED [facility] Stop: 01/15/18 23:00 Last Admin: 01/15/18 06:40 Dose: 125 mls/hr Cefazolin Sodium/Dextrose 2 gm (/ Premix) 50 mls @ 100 mls/hr IV Q8H [facility] Stop: 01/16/18 07:29 Last Admin: 01/16/18 06:30 Dose: 100 mls/hr Lidocaine HCl (Xylocaine-Mpf 1%) Confirm Administered Dose 4 mls @ as directed .ROUTE .STK-MED ONE Stop: 01/15/18 06:53 Lidocaine HCl (Xylocaine-Mpf 1%) Confirm Administered Dose 2 mls @ as directed .ROUTE .STK-MED ONE Stop: 01/15/18 07:34 Lactated Ringer's (Ringers, Lactated) Confirm Administered Dose 1,000 mls @ as directed .ROUTE .STK-MED ONE Stop: 01/15/18 07:35 Promethazine HCl 6.25 mg/ (Sodium Chloride) 9.25 mls @ 5 mls/min IV ONETIME PRN PRN Reason: Nausea Stop: 01/15/18 11:00 Lactated Ringer's (Ringers, Lactated) Confirm Administered Dose 1,000 mls @ as directed .ROUTE .STK-MED ONE Stop: 01/15/18 08:27 Iodine (Iodine 2% Mild Tincture) Confirm Administered Dose 30 ml .ROUTE .STK- MED ONE Stop: 01/15/18 06:08 Last Admin: 01/15/18 08:26 Dose: 18 ml Lidocaine/Sodium Bicarbonate (Buffered Lidocaine 1% In Ns 8.4%) 0.25 ml IDERM ONETIME PRN PRN Reason: Prior to IV Start Stop: 01/15/18 18:00 Last Admin: 01/15/18 06:40 Dose: 0.25 ml Midazolam HCl (Versed 1 Mg/Ml) Confirm Administered Dose 2 mg .ROUTE .STK-MED ONE Stop: 01/15/18 06:53 Morphine Sulfate (Duramorph Pf) Confirm Administered Dose 1 mg .ROUTE .STK-MED ONE Stop: 01/15/18 06:54 Non-Formulary Medication (Ubidecarenone) 100 mg PO DAILY [facility] Ondansetron HCl (Zofran) Confirm Administered Dose 4 mg .ROUTE .STK-MED ONE Stop: 01/15/18 07:32 Ondansetron HCl (Zofran) 4 mg IVPUSH ONETIME PRN PRN Reason: Nausea/Vomiting Stop: 01/15/18 10:00 Ondansetron HCl (Zofran) Confirm Administered Dose 4 mg .ROUTE .STK-MED ONE Stop: 01/15/18 09:00 Propofol (Diprivan 20 Ml) Confirm Administered Dose 200 mg .ROUTE .STK-MED ONE Stop: 01/15/18 06:53 Propofol (Diprivan 20 Ml) Confirm Administered Dose 400 mg .ROUTE .STK-MED ONE Stop: 01/15/18 06:54 Propofol (Diprivan 20 Ml) Confirm Administered Dose 200 mg .ROUTE .STK-MED ONE Stop: 01/15/18 07:00 Propofol (Diprivan 20 Ml) Confirm Administered Dose 200 mg .ROUTE .STK-MED ONE Stop: 01/15/18 10:54 Ropivacaine (Naropin 0.5%) Confirm Administered Dose 30 ml .ROUTE .STK-MED ONE Stop: 01/15/18 06:49 Scopolamine (Scopolamine) 1 each TOP ONETIME ONE Stop: 01/15/18 06:28 Last Admin: 01/15/18 06:47 Dose: 1 each Sodium Chloride (Saline Flush) 10 ml FLUSH ASDIRECTED PRN PRN Reason: Keep Vein Open Stop: 01/15/18 18:00 Tranexamic Acid (Cyklokapron) Confirm Administered Dose 1,000 mg .ROUTE .STK- MED ONE Stop: 01/15/18 06:07 Last Admin: 01/15/18 08:38 Dose: 1,000 mg Vancomycin HCl (Vancomycin) Confirm Administered Dose 1 gm .ROUTE .STK-MED ONE Stop: 01/15/18 06:07 Last Admin: 01/15/18 08:36 Dose: 1 gm - Exam Wound/Incisions: Dressing Dry and Intact General: Alert, Cooperative, No Acute Distress Lungs: Normal Respiratory Effort Extremities: Other (NVS intact for RLE. Noam's negative.) - Problem List Review Problem List Initiated/Reviewed/Updated: Yes - My Orders Last 24 Hours: Active Orders 24 hr Category Date Time Status Communication Order [RC] ROUTINE Care 01/15/18 07:47 Active Cooling Warming Measures [RC] ASDIRECTED Care 01/15/18 07:47 Inactive Pulse Oximetry [RC] ASDIRECTED Care 01/15/18 07:47 Active Urinary Catheter Assessment [RC] ASDIRECTED Care 01/15/18 07:58 Active Vital Signs [RC] Q15M Care 01/15/18 07:48 Inactive Regular Diet [DIET] Diet 01/15/18 Lunch Active Aspirin [Ecotrin] Med 01/16/18 09:00 Active 325 mg PO BID Calcium Carbonate Med 01/16/18 09:00 Active 600 mg PO DAILY Cholecalciferol (Vitamin D3) [Vitamin D3] Med 01/16/18 09:00 Active 2,000 units PO DAILY Docusate Sodium [Colace] Med 01/15/18 21:00 Active 100 mg PO BID Famotidine [Pepcid] Med 01/15/18 08:00 Active 20 mg PO Q12H Hydrochlorothiazide Med 01/16/18 09:00 Active 12.5 mg PO DAILY Lisinopril [Prinivil] Med 01/16/18 09:00 Active 10 mg PO DAILY Rivaroxaban [Xarelto] Med 01/16/18 09:00 Pending 10 mg PO DAILY Simvastatin [Zocor] Med 01/15/18 21:00 Active 10 mg PO BEDTIME metFORMIN [Glucophage] Med 01/15/18 17:00 Active 500 mg PO BIDMEALS Medication Orders Aspirin (Ecotrin) 325 mg PO BID [facility] Bisacodyl (Dulcolax) 5 mg PO DAILY PRN PRN Reason: Constipation Calcium Carbonate/Glycine (Calcium Carbonate) 600 mg PO DAILY [facility] Cholecalciferol (Vitamin D3) 2,000 units PO DAILY [facility] Cyclobenzaprine HCl (Flexeril) 10 mg PO TID PRN PRN Reason: Spasms Last Admin: 01/15/18 23:05 Dose: 10 mg Diphenhydramine HCl (Benadryl) 25 mg IVPUSH Q4H PRN PRN Reason: Nausea Docusate Sodium (Colace) 100 mg PO BID [facility] Last Admin: 01/15/18 20:11 Dose: 100 mg Famotidine (Pepcid) 20 mg PO Q12H [facility] Last Admin: 01/15/18 20:11 Dose: 20 mg Admin: 01/15/18 13:20 Dose: Hydrochlorothiazide (Hydrochlorothiazide) 12.5 mg PO DAILY [facility] Ketorolac Tromethamine (Toradol) 15 mg IVPUSH Q6H PRN PRN Reason: Pain Last Admin: 01/16/18 05:43 Dose: 15 mg Lisinopril (Prinivil) 10 mg PO DAILY [facility] Magnesium Hydroxide (Milk Of Magnesia) 30 ml PO BID PRN PRN Reason: Constipation Metformin HCl (Glucophage) 500 mg PO BIDMEALS [facility] Last Admin: 01/16/18 06:31 Dose: 500 mg Admin: 01/15/18 16:46 Dose: 500 mg Morphine Sulfate (Morphine) 2 mg IVPUSH Q2H PRN PRN Reason: Breakthrough Pain Naloxone HCl (Narcan) 0.1 mg IVPUSH Q5M PRN PRN Reason: Oversedation Ondansetron HCl (Zofran) 4 mg IVPUSH Q6H PRN PRN Reason: Nausea/Vomiting Oxycodone/Acetaminophen (Percocet 325-5 Mg) 1 - 2 tab PO Q4H PRN PRN Reason: Pain Last Admin: 01/16/18 05:35 Dose: 2 tab Admin: 01/15/18 23:04 Dose: 2 tab Admin: 01/15/18 16:45 Dose: 2 tab Rivaroxaban (Xarelto) 10 mg PO DAILY [facility] Senna (Senna) 8.6 mg PO BID PRN PRN Reason: Constipation Simvastatin (Zocor) 10 mg PO BEDTIME [facility] Last Admin: 01/15/18 20:11 Dose: 10 mg - Assessment Assessment (Free Text/Narrative):: POD#1 - right TKA - Plan Plan (Free Text/Narrative):: 1. Xarelto x 2 wks and then will transition to ASA for VTE prophylaxis. TEDs, frequent mobility. 2. Hgb 11.6. 3. Discharge to home today. 4. Outpatient therapy ordered. The pt's case was discussed with Dr. Shankar.
[2018-01-16] MEDS ORDERED: Cholecalciferol (Vitamin D3) 1,000 Unit Tab PO SCH (09:00)
[2018-01-16] MEDS ORDERED: Calcium Carbonate 600 MG Tab PO SCH (09:00)
[2018-01-16] MEDS ORDERED: Hydrochlorothiazide 12.5 MG Cap PO SCH (09:00)
[2018-01-16] MEDS ORDERED: Non-Formulary Medication 1 Each (Ubidecarenone 100 MG) PO SCH (09:00)
[2018-01-16] MEDS ORDERED: Aspirin 325 MG Tab.EC PO SCH (09:00)
[2018-01-16] MEDS ORDERED: Lisinopril 10 MG Tab PO SCH (09:00)
[2018-01-16] MEDS ORDERED: Rivaroxaban 10 MG Tab PO SCH (09:00)
--- NOTE | 2018-01-16 09:42 | PCM48HPAN ---
Post Anesthesia Note - EVALUATION WITHIN 48HRS OF ANESTHETIC Vital Signs in Normal Range: Yes Patient Participated in Evaluation: Yes Respiratory Function Stable: Yes Airway Patent: Yes Cardiovascular Function Stable: Yes Hydration Status Stable: Yes Pain Control Satisfactory: Yes Nausea and Vomiting Control Satisfactory: Yes Mental Status Recovered: Yes
[2018-01-16] MEDS: Docusate Sodium 100 MG Cap PO SCH (09:43)
[2018-01-16] MEDS: Famotidine 20 MG Tab PO SCH (09:43)
[2018-01-16 11:24] VITALS: BP 105/64
--- NOTE | 2018-01-22 21:51 | PCM.OPNOTE ---
- General Post-Op/Procedure Note Date of Surgery/Procedure: 01/15/18 Operative Procedure(s): right total knee arthroplasty Pre Op Diagnosis: right knee osteoarthrosis Post-Op Diagnosis: Same Anesthesia Technique: Local, MAC, Spinal Primary Surgeon: Reese Shankar Anesthesia Provider: Oliver Lu Press Breaker: Tali Cuellar Press Breaker: Cynthia Dobbins in mLs: 5 Complications: None Condition: Good
--- NOTE | 2018-01-22 22:29 | OR ---
DATE OF OPERATION: 01/15/2018 SURGEON: Reese Shankar MD OPERATION PERFORMED: Right total knee arthroplasty. PREOPERATIVE DIAGNOSIS: Right knee osteoarthrosis. POSTOPERATIVE DIAGNOSIS: Right knee osteoarthrosis. ANESTHESIA: Local MAC with spinal. ANESTHESIA PROVIDER: Oliver Lu CRNA. ASSISTANTS: Tali Cuellar PA-C and Cynthia Dobbins LPN. ESTIMATED BLOOD LOSS: 5 mL. COMPLICATIONS: None. CONDITION: Stable. IMPLANT: 1. Fadia size 5 PS femur. 2. Fadia size 4 universal tibial base plate. 3. Carrizozo size 4, 9 mm PS X3 polyethylene. 4. Fadia size 32 x 10 mm asymmetric patella. DESCRIPTION OF PROCEDURE: The patient was identified in the preop holding area. Proper site was marked and identified by the surgeon. The patient was taken back to the operating theater. After adequate anesthesia, the patient's right lower extremity had a nonsterile tourniquet applied and it was then sterilely prepped and draped in the usual sterile fashion. OR timeout was performed. The patient received 2 g IV Ancef. At this time, right lower extremity was exsanguinated. Tourniquet was insufflated to 300 mmHg. Standard medial parapatellar incision was made. Medial parapatellar arthrotomy was created. Deep fibers of the MCL were raised and anterior fat pad was resected. At this time, attention was turned to the patella. Patella measured 23, it was resected to a 13 for a 32 x 10 mm patella. Drill holes were then drilled and found to be in adequate position. The drill was then drilled in the distal femur and the intramedullary distal femoral cutting guide was then placed. 8 mm was resected off the distal femur and was found to be an adequate resection. Sizing guide was placed. It was found to be a size 5 PS femur that was shown on the implant record at the beginning of this dictation. The drill holes were drilled for the epicondylar axis using Whitesides line and epicondyles as reference. At this time, the 4-in-1 cutting block was placed. An anterior posterior and anterior and posterior chamfer cuts were then completed. The correct size box cut was then placed and the box cut was completed and found to be an adequate resection. Attention was turned to the tibia. The posterior medial lateral retractors were placed. The extramedullary tibial guide was placed. It was placed in the old footprint of the ACL. It was aligned with the center of the ankle and 0 degrees of slope, 9 mm was then resected off the unaffected lateral side. There was found to be an acceptable reduction. At this time, posterior osteophytes were removed along with medial and lateral meniscus. A trial implant was placed with a correct sized tibia that was mentioned at the beginning of the dictation. A Fadia size 4, 9 mm PS X3 polyethylene was then placed. The patient's knee was brought through range of motion. The patella was tracking centrally and was stable to varus and valgus stress. Alignment was found to be roughly at 0 degrees. At this time, cement was mixed on the back table. The tibia was stamped and drilled in proper rotation. All cut surfaces were irrigated with pulse lavage irrigation with Ancef and then completely dried. Once this was completed, then the cement was ready. The universal tibial base plate was cemented in place. Next, the size 5 PS femur cemented into place and the Fadia size 4, 9 mm PS X3 polyethylene was placed. The patient's knee was brought into full extension. Excess cement was removed. The patella was then cemented in place at this time. Tourniquet was deflated. One liter dilute Betadine solution was irrigated through the knee along with 3 L of pulse lavage irrigation with Ancef. Periarticular injection was then completed. The patient's knee was brought through a range of motion. Once the cement had time to set up and it was found to be stable to varus valgus stress, the patella was tracking centrally with full range of motion. At this time, a #2 barbed suture was used for closure of the medial parapatellar arthrotomy. Topical tranexamic acid was placed. 2-0 Vicryl was used subcutaneously, a running 3-0 Monocryl was used subcuticularly. The patient tolerated the procedure well and was sent to the PACU in stable condition. RON /[id number]
== END 2018-01-16 13:43 | disposition home or self-care (01) ==
LOC: JD.SDS 06:13 → JD.MS 06:15 → EDSTATUS 08:00 → JD.SDS 01-16 13:43
PROVIDERS: ATTEND Orthopaedic Surgery
DX: M17.11 Unilateral primary osteoarthritis, right knee (principal); I10 Essential (primary) hypertension; E78.00 Pure hypercholesterolemia, unspecified; E88.09 Other disorders of plasma-protein metabolism, not elsewhere classified; E11.9 Type 2 diabetes mellitus without complications; Z79.82 Long term (current) use of aspirin; Z79.84 Long term (current) use of oral hypoglycemic drugs; Z79.899 Other long term (current) drug therapy; Z87.891 Personal history of nicotine dependence
CPT/HCPCS: 27447; 36415; 64450; 73560; 80053; 82962; 85027; 85610; 85730; 87641; 97110; 97116; 97161; 97165; 97535; A9270; C1713; C1776; J0171; J0690; J0697; J1170; J1885; J2250; J2270; J2274; J2405; J2795; J3010; J3370; J3490; J7120; 01402; J2704

== ENCOUNTER → 2018-04-04 | Day surgery (SDC) | payer MEDICARE, OTHER ==
[~2018-04-04] MED LIST changes: -Bupivacaine 0.25% 30 ML SDV ONE; -Iodine/Sodium Iodide 2% Tincture 30 ML Bottle ONE; +Lactated Ringers 1,000 ML IV SCH; +Lidocaine 1% 4 ML ONE; +Lidocaine 1%/Sod Bicarbonate in NS 8.4% 1 ML Syringe IDERM PRN; +Propofol 200 MG/20 ML SDV ONE; +Sodium Chloride 0.9% 10 ML Syringe FLUSH PRN; -Vancomycin 1 GM SDV ONE; -ceFAZolin 1 GM Vial ONE; +fentaNYL 100 MCG/2 ML SDV ONE
--- NOTE | 2018-04-04 10:49 | PCM.PREANE ---
Preanesthetic Assessment - Anesthesia/Transfusion/Family Hx Anesthesia History: Prior Anesthesia Reaction Type of Anesthesia Reaction: Excessive Nausea/Vomiting (scope patch works) Transfusion History: No Prior Transfusion(s) - Review of Systems General: No Symptoms Pulmonary: No Symptoms Cardiovascular: No Symptoms Gastrointestinal: No Symptoms Neurological: No Symptoms Other: Reports: Diabetes - Physical Assessment NPO Status Date: 04/03/18 NPO Status Time: 21:30 Pulse: 79 O2 Sat by Pulse Oximetry: 97 Respiratory Rate: 16 Blood Pressure: 110/53 Temperature: 97.8 F Height: 5 ft 6 in Weight: 90.5 kg ASA Class: 2 Mental Status: Alert & Oriented x3 Airway Class: Mallampati = 1 Dentition: Reports: Normal Dentition Thyro-Mental Finger Breadths: 3 Mouth Opening Finger Breadths: 3 ROM/Head Extension: Full Lungs: Clear to Auscultation, Normal Respiratory Effort Cardiovascular: Regular Rate, Regular Rhythm - Allergies Allergies/Adverse Reactions: Allergies Allergy/AdvReac Type Severity Reaction Status Date / Time No Known Allergies Allergy Verified 04/03/18 15:33 - Blood Blood Available: No - Acknowledgements Anesthesia Type Planned: MAC Pt an Appropriate Candidate for the Planned Anesthesia: Yes Alternatives and Risks of Anesthesia Discussed w Pt/Guardian: Yes Pt/Guardian Understands and Agrees with Anesthesia Plan: Yes PreAnesthesia Questionnaire HEENT History: Reports: Impaired Vision Cardiovascular History: Reports: High Cholesterol, Hypertension Respiratory History: Reports: None Gastrointestinal History: Reports: None Genitourinary History: Reports: None EMBROIDERY SPECIALIST History: Reports: , Spontaneous Musculoskeletal History: Reports: Arthritis, Osteoarthritis, Other (See Below) Other Musculoskeletal History: R hip and knee pain, low back pain Neurological History: Reports: None Psychiatric History: Reports: None Endocrine/Metabolic History: Reports: None, Diabetes, Type II Hematologic History: Reports: Other (See Below) Other Hematologic History: hypoalbuminemia Immunologic History: Reports: None Oncologic (Cancer) History: Reports: None Dermatologic History: Reports: None, Other (See Below) Other Dermatologic History: candidiasis - Past Surgical History HEENT Surgical History: Reports: None Cardiovascular Surgical History: Reports: None Respiratory Surgical History: Reports: None GI Surgical History: Reports: None Female Surgical History: Reports: None Male Surgical History: Reports: None Endocrine Surgical History: Reports: None Neurological Surgical History: Reports: None Musculoskeletal Surgical History: Reports: Knee Replacement, Shoulder Surgery Other Musculoskeletal Surgeries/Procedures:: Left and Right rotator cuff repair , bilateral knee replacements Oncologic Surgical History: Reports: None - SUBSTANCE USE Smoking Status *Q: Former Smoker (quit 41 years ago) Tobacco Use Within Last Twelve Months: No Second Hand Smoke Exposure: No Days Per Week of Alcohol Use: 0 (rarely) Recreational Drug Use History: No - HOME MEDS Home Medications: Home Meds Aspirin [Adult Low Dose Aspirin EC] 81 mg PO DAILY 12/23/16 [History] Calcium Carbonate [Calcium] 500 mg PO DAILY 12/23/16 [History] Ubidecarenone [Co Q-10] 100 mg PO DAILY 12/23/16 [History] Cholecalciferol (Vitamin D3) [Vitamin D3] 2,000 unit PO DAILY 01/12/18 [History] metFORMIN [Glucophage] 500 mg PO BID 01/12/18 [History] Calcium Carb/Vitamin D3/Vit K1 [Viactiv Soft Chew] 1 tab PO DAILY 04/03/18 [ History] Diclofenac Sodium [Voltaren] 1 dose TOP ASDIRECTED PRN 04/03/18 [History] Lisinopril/Hydrochlorothiazide [Lisinopril-HCTZ 10-12.5 MG] 1 tab PO DAILY 04/03 [History] Lutein/Minerals/Vit A,C & E [Ocuvite] 1 tab PO DAILY 04/03/18 [History] atorvaSTATin [Lipitor] 40 mg PO DAILY 04/03/18 [History] - CURRENT (IN HOUSE) MEDS Current Meds: Current Medications Lactated Ringer's (Ringers, Lactated) 1,000 mls @ 125 mls/hr IV ASDIRECTED AUDI Stop: 04/04/18 23:00 Lidocaine/Sodium Bicarbonate (Buffered Lidocaine 1% In Ns 8.4%) 0.25 ml IDERM ONETIME PRN PRN Reason: Prior to IV Start Stop: 04/04/18 18:00 Sodium Chloride (Saline Flush) 10 ml FLUSH ASDIRECTED PRN PRN Reason: Keep Vein Open Stop: 04/04/18 18:00 Discontinued Medications Fentanyl (Sublimaze) Confirm Administered Dose 100 mcg .ROUTE .STK-MED ONE Stop: 04/04/18 10:19 Lidocaine HCl (Xylocaine-Mpf 1%) Confirm Administered Dose 4 mls @ as directed .ROUTE .STK-MED ONE Stop: 04/04/18 10:19 Propofol (Diprivan 20 Ml) Confirm Administered Dose 200 mg .ROUTE .STK-MED ONE Stop: 04/04/18 10:19
--- NOTE | 2018-04-04 12:00 | PCM.OPNOTE ---
- General Post-Op/Procedure Note Date of Surgery/Procedure: 04/04/18 Operative Procedure(s): Colonoscopy with transverse colonic polypectomy Findings: Diminutive transverse colonic polyp less than 5 mm Pre Op Diagnosis: Screening colonoscopy Post-Op Diagnosis: Colon polyp Anesthesia Technique: MAC, Moderate Sedation Primary Surgeon: Chris Sherman Pathology: Small colon polyp EBL in mLs: 0 Complications: None Condition: Good Free Text/Narrative:: After adequate IV sedation and analgesia was obtained with monitoring the patient was placed on her left side. Perianal inspection and digital rectal examination were performed next and were unremarkable. A lubricated colonoscope was inserted into the rectum and advanced to the cecum without difficulty. The bowel preparation was excellent. The cecum and ascending colon were endoscopically normal. In the transverse colon at 70 cm there was a small polyp which I removed with cold forceps. The specimen was retrieved and the polypectomy site was hemostatic. The descending and sigmoid colons were endoscopically normal. The rectum in both views was unremarkable as well. Transplant Surgeon photographs were taken for the patient and for the medical record.
[2018-04-04 12:01] VITALS: BP 122/71
--- NOTE | 2018-04-04 12:02 | PCM48HPAN ---
Post Anesthesia Note - EVALUATION WITHIN 48HRS OF ANESTHETIC Vital Signs in Normal Range: Yes Patient Participated in Evaluation: Yes Respiratory Function Stable: Yes Airway Patent: Yes Cardiovascular Function Stable: Yes Hydration Status Stable: Yes Pain Control Satisfactory: Yes Nausea and Vomiting Control Satisfactory: Yes Mental Status Recovered: Yes Pulse Rate: 81 SaO2: 95 Resp Rate: 16 Temperature: 97.6 F Blood Pressure: 122/71
== END | disposition home or self-care (01) ==
LOC: JD.SDS 10:21
PROVIDERS: ATTEND Surgery
DX: Z12.11 Encounter for screening for malignant neoplasm of colon (principal); D12.3 Benign neoplasm of transverse colon; I10 Essential (primary) hypertension; E11.9 Type 2 diabetes mellitus without complications; Z87.891 Personal history of nicotine dependence; E78.00 Pure hypercholesterolemia, unspecified; Z79.82 Long term (current) use of aspirin; Z79.84 Long term (current) use of oral hypoglycemic drugs; Z79.899 Other long term (current) drug therapy
CPT/HCPCS: 45380; 82962; J2001; J3010; J7120; J2704

== ENCOUNTER 2018-11-28 05:58 | Day surgery (SDC) | payer MEDICARE, OTHER ==
[~2018-11-28 05:58] MED LIST changes: -Lidocaine 1% 4 ML ONE; -Propofol 200 MG/20 ML SDV ONE; -fentaNYL 100 MCG/2 ML SDV ONE
[2018-11-28] MEDS ORDERED: Propofol 200 MG/20 ML SDV ONE (06:48)
[2018-11-28] MEDS ORDERED: fentaNYL 100 MCG/2 ML SDV ONE (06:48)
[2018-11-28] MEDS ORDERED: Lidocaine 1% 4 ML ONE (06:48)
[2018-11-28] MEDS ORDERED: Ondansetron 4 MG/2 ML SDV ONE (06:48)
[2018-11-28] MEDS ORDERED: ceFAZolin 1 GM Vial ONE (06:48)
[2018-11-28] MEDS ORDERED: Midazolam 1 MG/ML 2 ML SDV ONE (06:48)
[2018-11-28] MEDS ORDERED: Lidocaine 1% 30 ML SDV ONE (06:55)
[2018-11-28] MEDS ORDERED: Bupivacaine 0.25% 30 ML SDV ONE (06:55)
--- NOTE | 2018-11-28 07:26 | PCM.PREANE ---
Preanesthetic Assessment - Anesthesia/Transfusion/Family Hx Anesthesia History: Prior Anesthesia Reaction Transfusion History: No Prior Transfusion(s) Type of Transfusion Reactions: Reports: Unknown - Review of Systems General: No Symptoms Pulmonary: No Symptoms Cardiovascular: No Symptoms Gastrointestinal: No Symptoms Neurological: No Symptoms Other: Reports: Diabetes (Type II, Blood glucose 111 mg/dl) - Physical Assessment NPO Status Date: 11/27/18 NPO Status Time: 20:30 O2 Sat by Pulse Oximetry: 96 Respiratory Rate: 16 Vital Signs: Last Vital Signs Temp 36.3 C 11/28/18 06:10 Pulse 73 11/28/18 06:10 Resp 16 11/28/18 06:10 BP 120/60 11/28/18 06:10 Pulse Ox 96 11/28/18 06:10 Height: 1.68 m Weight: 90.718 kg ASA Class: 2 Mental Status: Alert & Oriented x3 Airway Class: Mallampati = 2 Dentition: Reports: Normal Dentition Thyro-Mental Finger Breadths: 2 Mouth Opening Finger Breadths: 3 ROM/Head Extension: Full Lungs: Clear to Auscultation, Normal Respiratory Effort Cardiovascular: Regular Rate, Regular Rhythm - Lab Values: Laboratory Last Values POC Glucose 111 mg/dL (83-110) H 11/28/18 06:22 MRSA (PCR) Negative 11/21/18 09:53 - Allergies Allergies/Adverse Reactions: Allergies Allergy/AdvReac Type Severity Reaction Status Date / Time No Known Allergies Allergy Verified 11/27/18 11:15 - Acknowledgements Anesthesia Type Planned: MAC Pt an Appropriate Candidate for the Planned Anesthesia: Yes Alternatives and Risks of Anesthesia Discussed w Pt/Guardian: Yes Pt/Guardian Understands and Agrees with Anesthesia Plan: Yes PreAnesthesia Questionnaire HEENT History: Reports: Impaired Vision Cardiovascular History: Reports: High Cholesterol, Hypertension Respiratory History: Reports: None Gastrointestinal History: Reports: None, Colon Polyp Genitourinary History: Reports: None PRIVATE INVESTIGATOR History: Reports: , Spontaneous Musculoskeletal History: Reports: Arthritis, Osteoarthritis, Other (See Below) Other Musculoskeletal History: R hip and knee pain, low back pain, right carpal tunnel syndrome Neurological History: Reports: None Psychiatric History: Reports: None Endocrine/Metabolic History: Reports: Diabetes, Type II Hematologic History: Reports: Other (See Below) Other Hematologic History: hypoalbuminemia Immunologic History: Reports: None Oncologic (Cancer) History: Reports: None Dermatologic History: Reports: None, Other (See Below) Other Dermatologic History: candidiasis - Past Surgical History HEENT Surgical History: Reports: None Cardiovascular Surgical History: Reports: None Respiratory Surgical History: Reports: None GI Surgical History: Reports: Colonoscopy Female Surgical History: Reports: None Male Surgical History: Reports: None Endocrine Surgical History: Reports: None Neurological Surgical History: Reports: None Musculoskeletal Surgical History: Reports: Knee Replacement, Shoulder Surgery Other Musculoskeletal Surgeries/Procedures:: Left and Right rotator cuff repair , bilateral knee replacements Oncologic Surgical History: Reports: None - SUBSTANCE USE Smoking Status *Q: Former Smoker Recreational Drug Use History: No - HOME MEDS Home Medications: Home Meds Aspirin [Adult Low Dose Aspirin EC] 81 mg PO DAILY 12/23/16 [History] Calcium Carbonate [Calcium] 500 mg PO DAILY 12/23/16 [History] Ubidecarenone [Co Q-10] 100 mg PO DAILY 12/23/16 [History] Cholecalciferol (Vitamin D3) [Vitamin D3] 2,000 unit PO DAILY 01/12/18 [History] metFORMIN [Glucophage] 500 mg PO BID 01/12/18 [History] Calcium Carb/Vitamin D3/Vit K1 [Viactiv Soft Chew] 1 tab PO DAILY 04/03/18 [ History] Lisinopril/Hydrochlorothiazide [Lisinopril-HCTZ 10-12.5 MG] 1 tab PO DAILY 04/03 [History] Lutein/Minerals/Vit A,C & E [Ocuvite] 1 tab PO DAILY 04/03/18 [History] atorvaSTATin [Lipitor] 40 mg PO DAILY 04/03/18 [History] Pyridoxine HCl [Vitamin B-6] 100 mg PO DAILY 11/27/18 [History] Acetaminophen/HYDROcodone [[place] 325-5 MG] 1 - 2 tab PO Q6H PRN #10 tablet 11/28 [Rx] - CURRENT (IN HOUSE) MEDS Current Meds: Current Medications Lactated Ringer's (Ringers, Lactated) 1,000 mls @ 125 mls/hr IV ASDIRECTED AUDI Stop: 11/28/18 23:00 Last Admin: 11/28/18 06:22 Dose: 125 mls/hr Lidocaine/Sodium Bicarbonate (Buffered Lidocaine 1% In Ns 8.4%) 0.25 ml IDERM ONETIME PRN PRN Reason: Prior to IV Start Stop: 11/28/18 18:00 Last Admin: 11/28/18 06:22 Dose: 0.25 ml Sodium Chloride (Saline Flush) 10 ml FLUSH ASDIRECTED PRN PRN Reason: Keep Vein Open Stop: 11/28/18 18:00 Discontinued Medications Bupivacaine HCl (Marcaine 0.25%) Confirm Administered Dose 30 ml .ROUTE .STK- MED ONE Stop: 11/28/18 06:56 Cefazolin Sodium (Ancef) Confirm Administered Dose 2 gm .ROUTE .STK-MED ONE Stop: 11/28/18 06:49 Fentanyl (Sublimaze) Confirm Administered Dose 100 mcg .ROUTE .STK-MED ONE Stop: 11/28/18 06:49 Lidocaine HCl (Xylocaine-Mpf 1%) Confirm Administered Dose 4 mls @ as directed .ROUTE .STK-MED ONE Stop: 11/28/18 06:49 Lidocaine HCl (Xylocaine-Mpf 1%) Confirm Administered Dose 30 ml .ROUTE .STK- MED ONE Stop: 11/28/18 06:56 Midazolam HCl (Versed 1 Mg/Ml) Confirm Administered Dose 2 mg .ROUTE .STK-MED ONE Stop: 11/28/18 06:49 Ondansetron HCl (Zofran) Confirm Administered Dose 4 mg .ROUTE .STK-MED ONE Stop: 11/28/18 06:49 Propofol (Diprivan 20 Ml) Confirm Administered Dose 400 mg .ROUTE .STK-MED ONE Stop: 11/28/18 06:49
--- NOTE | 2018-11-28 07:54 | PCM48HPAN ---
Post Anesthesia Note - EVALUATION WITHIN 48HRS OF ANESTHETIC Vital Signs in Normal Range: Yes Patient Participated in Evaluation: Yes Respiratory Function Stable: Yes Airway Patent: Yes Cardiovascular Function Stable: Yes Hydration Status Stable: Yes Pain Control Satisfactory: Yes Nausea and Vomiting Control Satisfactory: Yes Mental Status Recovered: Yes Pulse Rate: 72 SaO2: 96 Resp Rate: 16 Temperature: 36.7 C Blood Pressure: 96/54
[2018-11-28 09:11] VITALS: BP 114/72
--- NOTE | 2018-12-03 07:08 | PCM.OPNOTE ---
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
--- NOTE | 2018-12-04 17:26 | OR ---
DATE OF OPERATION: 11/28/2018 SURGEON: Reese Shankar MD OPERATION PERFORMED: Right carpal tunnel release with right trigger thumb release. 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 ANESTHESIA TECHNIQUE: Local MAC. ANESTHESIA PROVIDER: Dori Schwab. PUNCH OUT CREW MEMBER: Tali Cuellar PA-C. ESTIMATED BLOOD LOSS: Less than 5 mL. COMPLICATIONS: None. CONDITION: Stable. DESCRIPTION OF PROCEDURE: The patient was identified in the preoperative holding area. Proper site was marked and identified by the surgeon. The patient was taken back to the operating theater where after adequate anesthesia, the patient's right upper extremity was sterilely prepped and draped in the usual sterile fashion. OR time-out was performed. The patient received 2 g of IV Ancef. At this time, the right upper extremity was exsanguinated with use of an Esmarch, and Esmarch was used as a tourniquet on the forearm. 1% lidocaine without epinephrine and 0.25% Marcaine without epinephrine were then used to anesthetize palmar cutaneous branch of the median nerve as well as the incisional sites of the carpal tunnel and the A1 diana release of the thumb. At this time, an incision was made over the thumb A1 diana. Blunt dissection was taken down the A1 diana. Ragnell retractors were placed on the radial and ulnar sides to protect the neurovascular bundles. A Ione blade was then used for resection of the A1 diana. There was found to be adequate release. There was no tenolysis that was needed and no tendinous adhesions. At this time, attention was turned to the carpal tunnel. Incision was made in the carpal tunnel. This was taken down through palmar cutaneous fascia. Palmar cutaneous fascia was incised with a Ione blade. This was taken down to the transverse carpal ligament. A small rent was made in the transverse carpal ligament, and the tenotomy scissors were used to release the transverse carpal ligament all the way distally, stopping short of palmar arch. It was found to be adequately released. At this time, attention was turned proximally. The superficial forearm fascia as well as transverse carpal ligament were then released proximally making sure to keep the tips of ulnar nerve to protect the palmar cutaneous branch of the median nerve. At this time, there was found to be adequate release both proximally and distally. Both incisional sites were closed using 4-0 nylon sutures. The patient had a sterile soft dressing applied and was sent to PACU in stable condition. ANESTHESIA: MMMARIZA /[id number]
== END 2018-11-28 08:40 | disposition home or self-care (01) ==
LOC: JD.SDS 05:58
PROVIDERS: ATTEND Orthopaedic Surgery
DX: G56.01 Carpal tunnel syndrome, right upper limb (principal); M65.841 Other synovitis and tenosynovitis, right hand; I10 Essential (primary) hypertension; E11.9 Type 2 diabetes mellitus without complications; E78.00 Pure hypercholesterolemia, unspecified; Z87.891 Personal history of nicotine dependence; Z79.84 Long term (current) use of oral hypoglycemic drugs; Z79.82 Long term (current) use of aspirin; Z79.899 Other long term (current) drug therapy
CPT/HCPCS: 26055; 64721; 82962; 87641; J0690; J2250; J2405; J2704; J3490; J7120; 01810; J2001; J3010

== ENCOUNTER 2020-09-23 20:18 | Emergency (ER) | payer MEDICARE, OTHER ==
[2020-09-23 20:31] VITALS: BP 146/65; PULSE 83
[2020-09-23] MEDS ORDERED: Ondansetron 4 MG/2 ML SDV IVPUSH ONE (20:52)
--- NOTE | 2020-09-23 20:56 | EDM.PDOC ---
ED HPI GENERAL MEDICAL PROBLEM - General Chief Complaint: Respiratory Problem Stated Complaint: [facility] Time Seen by Provider: 09/23/20 20:28 Source of Information: Reports: Patient History Limitations: Reports: No Limitations - History of Present Illness INITIAL COMMENTS - FREE TEXT/NARRATIVE: Mrs. Shirley is a very pleasant 75-year-old woman who is now brought to the ED by EMS after suffering a syncopal episode while on her couch at home. According to the patient, she became lightheaded and diaphoretic while on the phone with [place], being told the results of her 's COVID test that she and her had yesterday. He is positive, while her test results are still pending, however, the patient already knew that her was positive, since he was seen in our ED today (by another provider). He was discharged home on supplemental oxygen and some medications. The patient states that she is concerned that she cannot take care of her in her current condition, since she has a "cold" including rhinorrhea, a dry cough, and sinus pressure since 09/20/2020, along with some chills today, but no fever, sore throat, dyspnea, chest discomfort, or palpitations. She states that she is feeling overwhelmed. Here in the ED, the patient's initial BP is found to be mildly elevated 146/65, otherwise, she is hemodynamically stable, afebrile, saturating 93% on room air. He states that she feels a little tired and nauseated. Prior to Monday, the patient denies having a recent fever, chills, sore throat, ear pain, nasal or sinus congestion, cough, dyspnea, chest pain, palpitations, nausea, vomiting, constipation, diarrhea, abdominal pain, urinary symptoms, recent weight gain or weight loss, recent bloody bowel movements or black bowel movements, recent joint aches, headaches, or rashes. The patient's PCP is Dr. Radha Laboy. Her Housing Court Judge is Dr. Shant Sierra. She did receive an influenza vaccine this season. Neck Pain Score (Numeric/FACES): 4 - Related Data Allergies Allergy/AdvReac Type Severity Reaction Status Date / Time No Known Allergies Allergy Verified 09/23/20 20:24 Home Meds: Home Meds Aspirin [Adult Low Dose Aspirin EC] 81 mg PO DAILY 12/23/16 [History] Calcium Carbonate [Calcium] 500 mg PO DAILY 12/23/16 [History] Ubidecarenone [Co Q-10] 100 mg PO DAILY 12/23/16 [History] Cholecalciferol (Vitamin D3) [Vitamin D3] 2,000 unit PO DAILY 01/12/18 [History] metFORMIN [Glucophage] 500 mg PO BID 01/12/18 [History] Lisinopril/Hydrochlorothiazide [Lisinopril-HCTZ 10-12.5 MG] 1 tab PO DAILY 04/03/18 [History] atorvaSTATin [Lipitor] 40 mg PO DAILY 04/03/18 [History] Pyridoxine HCl (Vitamin B6) [Vitamin B-6] 100 mg PO DAILY 11/27/18 [History] Past Medical History HEENT History: Reports: Impaired Vision Cardiovascular History: Reports: High Cholesterol, Hypertension Gastrointestinal History: Reports: Colon Polyp Genitourinary History: Reports: Urinary Incontinence (stress incontinence) [employer] History: Reports: Spontaneous (x 3) Musculoskeletal History: Reports: RA Endocrine/Metabolic History: Reports: Diabetes, Type II - Past Surgical History HEENT Surgical History: Reports: Oral Surgery (dental extractions) GI Surgical History: Reports: Colonoscopy Female Surgical History: Reports: D&C (x 3) Musculoskeletal Surgical History: Reports: Hip Replacement (bilateral), Shoulder Surgery (bilateral, open) Social & Family History - Family History Family Medical History: No Pertinent Family History Cardiac: Reports: CAD Oncologic: Reports: Breast, Lung - Tobacco Use Tobacco Use Status *Q: Former Tobacco User Years of Tobacco use: 10 Packs/Tins Daily: 1 Month/Year Tobacco Last Used: Quit 1974 - Caffeine Use Caffeine Use: Reports: Coffee - Alcohol Use Alcohol Use History: Yes - Recreational Drug Use Recreational Drug Use: No - Living Situation & Occupation Living situation: Reports: , with Spouse Occupation: Retired ED ROS GENERAL - Review of Systems Review Of Systems: Comprehensive ROS is negative, except as noted in HPI. ED EXAM, GENERAL - Physical Exam Exam: See Below Exam Limited By: No Limitations General Appearance: Alert, WD/WN, No Apparent Distress Eye Exam: Bilateral Eye: EOMI, Normal Inspection Ears: Normal External Exam, Hearing Grossly Normal Nose: Normal Inspection Throat/Mouth: Normal Inspection, Normal Lips, Normal Voice, No Airway Compromise Head: Atraumatic, Normocephalic Neck: Normal Inspection, Full Range of Motion Respiratory/Chest: No Respiratory Distress, Lungs Clear, Normal Breath Sounds, No Accessory Muscle Use Cardiovascular: Normal Peripheral Pulses, Regular Rate, Rhythm, No Edema, No Gallop, No JVD, No Murmur, No Rub Peripheral Pulses: 3+: Radial (L), Radial (R) GI/Abdominal: Normal Bowel Sounds, Soft, Non-Tender, No Organomegaly, No Distention, No Abnormal Bruit, No Mass Back Exam: Normal Inspection, Full Range of Motion, NT Extremities: Normal Inspection, Normal Range of Motion, No Pedal Edema, Normal Capillary Refill Neurological: Alert, Oriented, Normal Cognition, No Motor/Sensory Deficits Psychiatric: Normal Affect Skin Exam: Warm, Dry, Intact, Normal Color, No Rash #1 Interpretation EKG Date: 09/23/20 Time: 21:07 Rhythm: NSR Rate (Beats/Min): 81 [place]: Normal P-Wave: Present QRS: Normal ST-T: Normal QT: Normal Comparison: NA - No Prior EKG Course - Vital Signs Last Recorded V/S: Last Vital Signs Temp 36.4 C 09/23/20 20:28 Pulse 83 09/23/20 20:28 Resp 18 09/23/20 20:28 BP 146/65 H 09/23/20 20:28 Pulse Ox 93 L 09/23/20 20:28 Orthostatic Blood Pressure [ 114/58 Standing] Orthostatic Blood Pressure [ 118/62 Supine] - Orders/Labs/Meds Orders: Active Orders 24 hr Category Date Time Status Chest 2V [CR] Stat Exams 09/23/20 20:51 Taken Sodium Chloride 0.9% [Normal Saline] 1,000 ml Med 09/23/20 21:00 Active IV ASDIRECTED Medication Orders Sodium Chloride (Normal Saline) 1,000 mls @ 150 mls/hr IV ASDIRECTED AUDI Last Admin: 09/23/20 21:00 Dose: 150 mls/hr Documented by: KELLEY Labs: Laboratory Tests 09/23/20 09/23/20 09/23/20 Range/Units 20:21 20:21 20:21 WBC 5.23 (3.98-10.04) K/mm3 RBC 4.56 (3.98-5.22) M/mm3 Hgb 13.0 (11.2-15.7) gm/dl Hct 40.5 (34.1-44.9) % MCV 88.8 (79.4-94.8) fl MCH 28.5 (25.6-32.2) pg MCHC 32.1 L (32.2-35.5) g/dl RDW Std Deviation 43.5 (36.4-46.3) fL Plt Count 256 (182-369) K/mm3 MPV 10.8 (9.4-12.3) fl Neutrophils % (Manual) 63 H (40-60) % Band Neutrophils % 0 (0-10) % Lymphocytes % (Manual) 31 (20-40) % Atypical Lymphs % 0 % Monocytes % (Manual) 6 (2-10) % Eosinophils % (Manual) 0 L (0.7-5.8) % Basophils % (Manual) 0 L (0.1-1.2) Platelet Estimate Adequate Plt Morphology Comment Normal RBC Morph Comment Normal D-Dimer, Quantitative 0.45 (0.19-0.50) mg/L Sodium 137 (136-145) mEq/L Potassium 3.5 (3.5-5.1) mEq/L Chloride 101 (98-107) mEq/L Carbon Dioxide 24 (21-32) mEq/L Anion Gap 15.5 H (5-15) BUN 15 (7-18) mg/dL Creatinine 0.8 (0.55-1.02) mg/dL Est Cr Clr Drug Dosing 58.63 mL/min Estimated GFR (MDRD) > 60 (>60) mL/min BUN/Creatinine Ratio 18.8 H (14-18) Glucose 192 H (83-115) mg/dL Calcium 9.0 (8.5-10.1) mg/dL Magnesium 1.8 (1.8-2.4) mg/dl Total Bilirubin 0.6 (0.2-1.0) mg/dL AST 42 H (15-37) U/L ALT 56 (14-59) U/L Alkaline Phosphatase 71 (46-116) U/L Troponin I < 0.017 (0.00-0.056) ng/mL Total Protein 7.6 (6.4-8.2) g/dl Albumin 3.6 (3.4-5.0) g/dl Globulin 4.0 gm/dL Albumin/Globulin Ratio 0.9 L (1-2) Meds: Medications Generic Name Dose Route Start Last Admin Trade Name Chong PRN Reason Stop Dose Admin Sodium Chloride 1,000 mls @ 150 mls/hr 09/23/20 21:00 09/23/20 21:00 Normal Saline IV 150 mls/hr ASDIRECTED AUDI Administration Discontinued Medications Generic Name Dose Route Start Last Admin Trade Name Chong PRN Reason Stop Dose Admin Ondansetron HCl 4 mg 09/23/20 20:52 09/23/20 21:00 Zofran IVPUSH 09/23/20 20:53 4 mg ONETIME ONE Administration - Re-Assessments/Exams Free Text/Narrative Re-Assessment/Exam: 09/23/20 20:52 As above, the patient suffered a syncopal episode while on the phone with [place], receiving the results of her 's positive COVID test from yesterday, even though she knew his test results from his visit to our ED today. She states that she just felt overwhelmed. She is concerned that she cannot ca re for her and her current condition, since she is experiencing cold- like symptoms, including rhinorrhea, a dry cough, and sinus pressure since Monday, with chills today, but no fever or dyspnea. The patient is afebrile, saturating 93% on room air. Her physical exam is grossly unremarkable. I have ordered a work-up and includes orthostatics, blood work, chest x-ray, and an ECG. In the meantime, the patient was given some IV fluid and IV Zofran, to see if we can get her feeling a little better. With respect to the patient's COVID that is, she is almost certainly positive, since her is positive, and they live in the same house. There is no point in swabbing her for the SARS-CoV-2 virus at this time, since a test that she underwent yesterday in [place] is still pending. 09/23/20 21:24 The patient is not orthostatic. Her CBC is unremarkable. CMP is remarkable for an anion gap slightly elevated at 15.5, but with a bicarbonate normal at 24. Her blood glucose is elevated at 192. Her AST is slightly elevated at 42, while her ALT is within normal limits at 56. The remainder of her CMP is unremarkable. Her magnesium level is within normal limits at 1.8. Her troponin is undetectably low. Her D-dimer is within normal limits at 0.45. 09/23/20 21:55 2-view chest radiograph is read by [facility] as "Negative for acute thoracic pathology." 09/23/20 22:01 Test results discussed with the patient. Other than modest hyperglycemia, today's work-up is unremarkable. Although she does not yet have confirmation of her COVID test, she is almost certainly positive, and her current cold-like symptoms are most likely a representation of that. I explained to the patient that unless her oxygen saturation drops to 88% or below, there is no current treatment for COVID-19. The patient was likely already aware of that. They have a pulse oximeter at home. I recommended to the patient that if her oxygen saturation drops to 90%, that she return to the ED for reevaluation, but as long as it is above that, there is really not much that we can do. Departure - Departure Time of Disposition: 22:03 Disposition: Home, Self-Care 01 Condition: Good Clinical Impression: Fainted, Hyperglycemia due to type 2 diabetes mellitus, Suspected COVID-19 virus infection - Discharge Information *PRESCRIPTION DRUG MONITORING PROGRAM REVIEWED*: Not Applicable *COPY OF PRESCRIPTION DRUG MONITORING REPORT IN PATIENT RANDY: Not Applicable Instructions: COVID-19 Frequently Asked Questions, Hyperglycemia, [id number], Prevent the Spread of COVID-19 if You Are Sick - [facility] Referrals: Radha Laboy MD [Primary Care Provider] - Shant Sierra MD [Ordering Only Provider] - Forms: ED Department Discharge Additional Instructions: You were seen in the emergency room after fainting earlier tonight, while discussing your 's positive COVID test results. Work-up in the ER included positional blood pressure checks, blood work, a chest x-ray, and an ECG. Your blood sugar was found to be elevated 192, otherwise, your work-up was unremarkable. You are not dehydrated. You are not anemic. No significant electrolyte abnormalities were found. You have not suffered a heart attack. You do not have a blood clot in your lungs. You do not have pneumonia, or a collapsed lung. Based on your history, physical exam, and ER tests, the cause of your fainting was most likely due to anxiety. Although your COVID test results are still pending, you are almost certainly positive, like your . As discussed, unless your oxygen saturation drops to 88% or below, there are no current recommended treatments for COVID-19. Keep checking your oxygen saturation. If it drops down to 90% consistently, please return to the ER for reevaluation. If any other problems, please do not hesitate to return to the ER. Sepsis Event Note (ED) - Evaluation Sepsis Screening Result: No Definite Risk - Focused Exam Vital Signs: Vital Signs Temp Pulse Resp BP Pulse Ox 09/23/20 20:28 36.4 C 83 18 146/65 H 93 L - My Orders Last 24 Hours: My Active Orders 09/23/20 20:51 Chest 2V [CR] Stat 09/23/20 21:00 Sodium Chloride 0.9% [Normal Saline] 1,000 ml IV ASDIRECTED - Assessment/Plan Last 24 Hours: My Active Orders 09/23/20 20:51 Chest 2V [CR] Stat 09/23/20 21:00 Sodium Chloride 0.9% [Normal Saline] 1,000 ml IV ASDIRECTED
[2020-09-23] MEDS ORDERED: Sodium Chloride 0.9% 1,000 ML IV SCH (21:00)
--- NOTE | 2020-09-24 08:44 | CR ---
PROCEDURE INFORMATION: Exam: XR Chest, 2 Views Exam date and time: 09/23/2020 9:23 PM Age: 75 years old Clinical indication: Other: Syncope TECHNIQUE: Imaging protocol: XR of the chest Views: 2 views. COMPARISON: DX Chest 2V 09/24/2019 10:01 AM FINDINGS: Lungs: Unremarkable. No consolidation. Pleural space: Unremarkable. No pleural effusion. No pneumothorax. Heart/Mediastinum: Unremarkable. No cardiomegaly. Bones/joints: No acute abnormality or aggressive osseous lesion. Tendon anchors noted in the left humeral head. IMPRESSION: Negative for acute thoracic pathology. Thank you for allowing us to participate in the care of your patient. Dictated and Authenticated by: Aki Currie MD 09/23/2020 10:48 PM Central Time ([place] & [place]) [facility]
== END 2020-09-23 22:22 | disposition home or self-care (01) ==
LOC: JD.ED 20:18
DX: E11.65 Type 2 diabetes mellitus with hyperglycemia (principal); E78.00 Pure hypercholesterolemia, unspecified; I10 Essential (primary) hypertension; M06.9 Rheumatoid arthritis, unspecified; Z20.828 Contact with and (suspected) exposure to other viral communicable diseases; Z79.82 Long term (current) use of aspirin; Z79.84 Long term (current) use of oral hypoglycemic drugs; Z79.899 Other long term (current) drug therapy; Z87.891 Personal history of nicotine dependence
CPT/HCPCS: 36415; 71046; 80053; 83735; 84484; 85007; 85027; 85379; 93005; 96374; 99285; J2405; J7030; 93010; 99284

== ENCOUNTER 2021-11-13 08:17 | Emergency (ER) | payer MEDICARE, OTHER ==
[2021-11-13 09:37] LABS: CORONAVIRUS COVID-19 NAA POSITIVE (NEGATIVE)
--- NOTE | 2021-11-13 10:54 | EDM.PDOC ---
ED HPI GENERAL MEDICAL PROBLEM - General Chief Complaint: Respiratory Problem Stated Complaint: COVID TEST Time Seen by Provider: 11/13/21 10:15 - History of Present Illness INITIAL COMMENTS - FREE TEXT/NARRATIVE: 76-year-old female presents the emergency room with concerns of having recurrent Covid infection. The patient has a 6-day history of URI-like symptoms fairly mild. However, yesterday she developed a loss of smell followed by taste. The patient has had mid urine vaccine x3. She has no other complaints this time she is not having any chest pain breathing difficulties or shortness of breath. The patient is very concerned about possibly exposing other people. She had a significant Covid infection approximately 1 year ago. Unfortunately her secondary to his Covid involvement at that time. The patient is wondering if she is a candidate for the Regeneron therapy. - Related Data Allergies Allergy/AdvReac Type Severity Reaction Status Date / Time No Known Allergies Allergy Verified 11/13/21 08:42 Home Meds: Home Meds Aspirin [Adult Low Dose Aspirin EC] 81 mg PO DAILY 12/23/16 [History] Calcium Carbonate [Calcium] 500 mg PO DAILY 12/23/16 [History] Ubidecarenone [Co Q-10] 100 mg PO DAILY 12/23/16 [History] Cholecalciferol (Vitamin D3) [Vitamin D3] 2,000 unit PO DAILY 01/12/18 [History] metFORMIN [Glucophage] 500 mg PO BID 01/12/18 [History] Lisinopril/Hydrochlorothiazide [Lisinopril-HCTZ 10-12.5 MG] 1 tab PO DAILY 04/03/18 [History] atorvaSTATin [Lipitor] 40 mg PO DAILY 04/03/18 [History] Pyridoxine HCl (Vitamin B6) [Vitamin B-6] 100 mg PO DAILY 11/27/18 [History] Past Medical History HEENT History: Reports: Impaired Vision Cardiovascular History: Reports: High Cholesterol, Hypertension Respiratory History: Reports: None Gastrointestinal History: Reports: Colon Polyp Genitourinary History: Reports: Urinary Incontinence [employer] History: Reports: Spontaneous Musculoskeletal History: Reports: RA Other Musculoskeletal History: R hip and knee pain, low back pain, right carpal tunnel syndrome Neurological History: Reports: None Psychiatric History: Reports: None Endocrine/Metabolic History: Reports: Diabetes, Type II Hematologic History: Reports: Other (See Below) Other Hematologic History: hypoalbuminemia Immunologic History: Reports: None Oncologic (Cancer) History: Reports: None Dermatologic History: Reports: None, Other (See Below) Other Dermatologic History: candidiasis - Infectious Disease History Infectious Disease History: Reports: Novel Coronavirus - Past Surgical History Head Surgeries/Procedures: Reports: None HEENT Surgical History: Reports: Oral Surgery Cardiovascular Surgical History: Reports: None Respiratory Surgical History: Reports: None GI Surgical History: Reports: Colonoscopy Female Surgical History: Reports: D&C Endocrine Surgical History: Reports: None Neurological Surgical History: Reports: None Musculoskeletal Surgical History: Reports: Hip Replacement, Shoulder Surgery Other Musculoskeletal Surgeries/Procedures:: Left and Right rotator cuff repair, bilateral knee replacements Oncologic Surgical History: Reports: None Social & Family History - Family History Family Medical History: No Pertinent Family History Cardiac: Reports: CAD Oncologic: Reports: Breast, Lung - Tobacco Use Tobacco Use Status *Q: Former Tobacco User Used Tobacco, but Quit: Yes Month/Year Tobacco Last Used: 40 yrs ago - Caffeine Use Caffeine Use: Reports: Coffee - Living Situation & Occupation Living situation: Reports: , with Spouse Occupation: Retired ED ROS GENERAL - Review of Systems Review Of Systems: See Below Constitutional: Reports: No Symptoms. Denies: Fever, Chills HEENT: Reports: Rhinitis, Other (She has developed loss of taste and smell) Respiratory: Reports: No Symptoms. Denies: Shortness of Breath, Pleuritic Chest Pain, Cough Cardiovascular: Reports: No Symptoms. Denies: Chest Pain Endocrine: Reports: No Symptoms GI/Abdominal: Reports: No Symptoms : Reports: No Symptoms Musculoskeletal: Reports: No Symptoms Skin: Reports: No Symptoms Neurological: Reports: No Symptoms ED EXAM, GENERAL - Physical Exam Exam: See Below Exam Limited By: No Limitations General Appearance: Alert, No Apparent Distress Eye Exam: Bilateral Eye: Normal Inspection Ears: Normal External Exam, Normal Canal, Hearing Grossly Normal, Normal TMs Nose: Normal Inspection, Normal Mucosa, No Blood Throat/Mouth: Normal Inspection, Normal Lips, Normal Teeth, Normal Gums, Normal Oropharynx, Normal Voice, No Airway Compromise Head: Atraumatic, Normocephalic Neck: Normal Inspection, Supple, Non-Tender, Full Range of Motion. No: Lymphadenopathy (L), Lymphadenopathy (R) Respiratory/Chest: No Respiratory Distress, Lungs Clear, Normal Breath Sounds Cardiovascular: Normal Peripheral Pulses, Regular Rate, Rhythm, No Edema GI/Abdominal: Normal Bowel Sounds, Soft, Non-Tender Back Exam: Normal Inspection. No: CVA Tenderness (L), CVA Tenderness (R) Extremities: Normal Inspection, No Pedal Edema Neurological: Alert, Oriented, Normal Cognition Course - Vital Signs Last Recorded V/S: Last Vital Signs Temp 36.4 C 11/13/21 13:10 Pulse 86 11/13/21 13:10 Resp 18 11/13/21 13:10 BP 146/76 H 11/13/21 13:10 Pulse Ox 96 11/13/21 13:10 - Orders/Labs/Meds Orders: Active Orders 24 hr Category Date Time Status Vital Signs [RC] Q15M Care 11/13/21 11:25 Active CXR [Chest 1V Frontal] [CR] Stat Exams 11/13/21 08:58 Taken EPINEPHrine [Adrenalin] Med 11/13/21 11:25 Active 0.3 mg IM ASDIRECTED PRN Famotidine [Pepcid] Med 11/13/21 11:25 Active 20 mg IVPUSH ASDIRECTED PRN Sodium Chloride 0.9% [Saline Flush] Med 11/13/21 11:30 Active 30 ml FLUSH ASDIRECTED diphenhydrAMINE [Benadryl] Med 11/13/21 11:25 Active 50 mg IVPUSH ASDIRECTED PRN methylPREDNISolone Sod Succ [Solu-MEDROL] Med 11/13/21 11:25 Active 125 mg IVPUSH ASDIRECTED PRN Medication Orders Diphenhydramine HCl (Diphenhydramine 50 Mg/Ml Sdv) 50 mg IVPUSH ASDIRECTED PRN PRN Reason: hypersensitivity reaction Epinephrine HCl (Epinephrine 1 Mg/Ml Sdv) 0.3 mg IM ASDIRECTED PRN PRN Reason: hypersensitivity reaction Famotidine (Famotidine 20 Mg/2 Ml Sdv) 20 mg IVPUSH ASDIRECTED PRN PRN Reason: hypersensitivity reaction Methylprednisolone Sodium Succinate (Methylprednisolone Sodium Succinate 125 Mg/2 Ml Sdv) 125 mg IVPUSH ASDIRECTED PRN PRN Reason: hypersensitivity reaction Sodium Chloride (Sodium Chloride 0.9% 10 Ml Syringe) 30 ml FLUSH ASDIRECTED AUDI Labs: Laboratory Tests 11/13/21 11/13/21 11/13/21 Range/Units 08:40 10:52 10:52 WBC 8.51 (3.98-10.04) K/mm3 RBC 4.46 (3.98-5.22) M/mm3 Hgb 13.4 (11.2-15.7) gm/dl Hct 41.2 (34.1-44.9) % MCV 92.4 (79.4-94.8) fl MCH 30.0 (25.6-32.2) pg MCHC 32.5 (32.2-35.5) g/dl RDW Std Deviation 42.6 (36.4-46.3) fL Plt Count 285 (182-369) K/mm3 MPV 10.5 (9.4-12.3) fl Neut % (Auto) 76.8 H (34.0-71.1) % Lymph % (Auto) 17.0 L (19.3-51.7) % [place] % (Auto) 5.3 (4.7-12.5) % Eos % (Auto) 0.6 L (0.7-5.8) Baso % (Auto) 0.2 (0.1-1.2) % Neut # (Auto) 6.53 H (1.56-6.13) K/mm3 Lymph # (Auto) 1.45 (1.18-3.74) K/mm3 [place] # (Auto) 0.45 H (0.24-0.36) K/mm3 Eos # (Auto) 0.05 (0.04-0.36) K/mm3 Baso # (Auto) 0.02 (0.01-0.08) K/mm3 Sodium 143 (136-145) mEq/L Potassium 4.4 (3.5-5.1) mEq/L Chloride 103 (98-107) mEq/L Carbon Dioxide 30 (21-32) mEq/L Anion Gap 14.4 (5-15) BUN 16 (7-18) mg/dL Creatinine 0.7 (0.55-1.02) mg/dL Est Cr Clr Drug Dosing 66.01 mL/min Estimated GFR (MDRD) > 60 (>60) mL/min BUN/Creatinine Ratio 22.9 H (14-18) Glucose 128 H (70-99) mg/dL Calcium 9.3 (8.5-10.1) mg/dL Ferritin (8-252) ng/ml Total Bilirubin 0.7 (0.2-1.0) mg/dL AST 22 (15-37) U/L ALT 37 (14-59) U/L Alkaline Phosphatase 65 (46-116) U/L Lactate Dehydrogenase 203 (81-234) U/L C-Reactive Protein 0.6 (<1.0) mg/dL Total Protein 7.7 (6.4-8.2) g/dl Albumin 3.7 (3.4-5.0) g/dl Globulin 4.0 gm/dL Albumin/Globulin Ratio 0.9 L (1-2) Influenza Type A RNA Negative (NEGATIVE) RSV RNA (INAAT) Negative (NEGATIVE) Influenza Type B RNA Negative (NEGATIVE) SARS-CoV-2 RNA ([place]) Positive H (NEGATIVE) 11/13/21 Range/Units 10:52 WBC (3.98-10.04) K/mm3 RBC (3.98-5.22) M/mm3 Hgb (11.2-15.7) gm/dl Hct (34.1-44.9) % MCV (79.4-94.8) fl MCH (25.6-32.2) pg MCHC (32.2-35.5) g/dl RDW Std Deviation (36.4-46.3) fL Plt Count (182-369) K/mm3 MPV (9.4-12.3) fl Neut % (Auto) (34.0-71.1) % Lymph % (Auto) (19.3-51.7) % [place] % (Auto) (4.7-12.5) % Eos % (Auto) (0.7-5.8) Baso % (Auto) (0.1-1.2) % Neut # (Auto) (1.56-6.13) K/mm3 Lymph # (Auto) (1.18-3.74) K/mm3 [place] # (Auto) (0.24-0.36) K/mm3 Eos # (Auto) (0.04-0.36) K/mm3 Baso # (Auto) (0.01-0.08) K/mm3 Sodium (136-145) mEq/L Potassium (3.5-5.1) mEq/L Chloride (98-107) mEq/L Carbon Dioxide (21-32) mEq/L Anion Gap (5-15) BUN (7-18) mg/dL Creatinine (0.55-1.02) mg/dL Est Cr Clr Drug Dosing mL/min Estimated GFR (MDRD) (>60) mL/min BUN/Creatinine Ratio (14-18) Glucose (70-99) mg/dL Calcium (8.5-10.1) mg/dL Ferritin 321 H (8-252) ng/ml Total Bilirubin (0.2-1.0) mg/dL AST (15-37) U/L ALT (14-59) U/L Alkaline Phosphatase (46-116) U/L Lactate Dehydrogenase (81-234) U/L C-Reactive Protein (<1.0) mg/dL Total Protein (6.4-8.2) g/dl Albumin (3.4-5.0) g/dl Globulin gm/dL Albumin/Globulin Ratio (1-2) Influenza Type A RNA (NEGATIVE) RSV RNA (INAAT) (NEGATIVE) Influenza Type B RNA (NEGATIVE) SARS-CoV-2 RNA ([place]) (NEGATIVE) Meds: Medications Generic Name Dose Route Start Last Admin Trade Name Freq PRN Reason Stop Dose Admin Diphenhydramine HCl 50 mg 11/13/21 11:25 Diphenhydramine 50 Mg/Ml Sdv IVPUSH ASDIRECTED PRN hypersensitivity reaction Epinephrine HCl 0.3 mg 11/13/21 11:25 Epinephrine 1 Mg/Ml Sdv IM ASDIRECTED PRN hypersensitivity reaction Famotidine 20 mg 11/13/21 11:25 Famotidine 20 Mg/2 Ml Sdv IVPUSH ASDIRECTED PRN hypersensitivity reaction Methylprednisolone Sodium Succinate 125 mg 11/13/21 11:25 Methylprednisolone Sodium Succinate 125 Mg/2 Ml Sdv IVPUSH ASDIRECTED PRN hypersensitivity reaction Sodium Chloride 30 ml 11/13/21 11:30 Sodium Chloride 0.9% 10 Ml Syringe FLUSH ASDIRECTED AUDI Discontinued Medications Generic Name Dose Route Start Last Admin Trade Name Freq PRN Reason Stop Dose Admin Bamlanivimab 700 mg/ 310 mls @ 310 mls/hr 11/13/21 11:45 11/13/21 11:48 Etesevimab 1,400 mg/ Sodium IV 11/13/21 12:44 310 mls/hr Chloride ONETIME ONE Administration - Re-Assessments/Exams Free Text/Narrative Re-Assessment/Exam: 11/13/21 10:52 Check some routine Covid labs she is not having any chest pain or chest pressure or any sort of chest symptoms. Anticipate Regeneron treatment. Thus far she has no contraindications. 11/13/21 11:25 I spoke with the patient to provide information about REGEN-COV treatment. I offered them the Patient and Caregiver [facility] REGEN-COV Fact Sheet to read and review. I stated the drug has been approved by an emergency use authorization (EUA} process and has not fully been FDA reviewed or approved. The patient meets the EUA requirements. I discussed there are other potential treatment options that are currently not FDA approved to treat COVID 19. Offered opportunity to ask questions and all questions were answered. The patient voiced understanding and agreed to proceed with treatment. 11/13/21 13:29 Patient has tolerated the monoclonal antibody therapy without difficulty anticipate discharge. Another little bit Departure - Departure Time of Disposition: 13:48 Disposition: Home, Self-Care 01 Clinical Impression: COVID-19 - Discharge Information Referrals: Radha Laboy MD [Primary Care Provider] - Forms: ED Department Discharge Additional Instructions: Return to the emergency room with any questions problems or worsening symptoms. Home isolation for 5 days after your symptoms resolve. Tylenol as needed for discomfort and/or fevers. Sepsis Event Note (ED) - Evaluation Sepsis Screening Result: No Definite Risk - Focused Exam Vital Signs: Vital Signs Temp Pulse Resp BP Pulse Ox 11/13/21 13:10 36.4 C 86 18 146/76 H 96 11/13/21 11:49 78 16 141/87 H 96 11/13/21 08:40 36.4 C 81 16 178/88 H 97 - My Orders Last 24 Hours: My Active Orders 11/13/21 08:58 CXR [Chest 1V Frontal] [CR] Stat 11/13/21 11:25 Vital Signs [RC] Q15M EPINEPHrine [Adrenalin] 0.3 mg IM ASDIRECTED PRN Famotidine [Pepcid] 20 mg IVPUSH ASDIRECTED PRN diphenhydrAMINE [Benadryl] 50 mg IVPUSH ASDIRECTED PRN methylPREDNISolone Sod Succ [Solu-MEDROL] 125 mg IVPUSH ASDIRECTED PRN 11/13/21 11:30 Sodium Chloride 0.9% [Saline Flush] 30 ml FLUSH ASDIRECTED - Assessment/Plan Last 24 Hours: My Active Orders 11/13/21 08:58 CXR [Chest 1V Frontal] [CR] Stat 11/13/21 11:25 Vital Signs [RC] Q15M EPINEPHrine [Adrenalin] 0.3 mg IM ASDIRECTED PRN Famotidine [Pepcid] 20 mg IVPUSH ASDIRECTED PRN diphenhydrAMINE [Benadryl] 50 mg IVPUSH ASDIRECTED PRN methylPREDNISolone Sod Succ [Solu-MEDROL] 125 mg IVPUSH ASDIRECTED PRN 11/13/21 11:30 Sodium Chloride 0.9% [Saline Flush] 30 ml FLUSH ASDIRECTED
[2021-11-13] MEDS ORDERED: methylPREDNISolone Sodium Succinate 125 MG/2 ML SDV IVPUSH PRN (11:25)
[2021-11-13] MEDS ORDERED: EPINEPHrine 1 MG/ML SDV IM PRN (11:25)
[2021-11-13] MEDS ORDERED: diphenhydrAMINE 50 MG/ML SDV IVPUSH PRN (11:25)
[2021-11-13] MEDS ORDERED: Famotidine 20 MG/2 ML SDV IVPUSH PRN (11:25)
[2021-11-13] MEDS ORDERED: Sodium Chloride 0.9% 10 ML Syringe FLUSH SCH (11:30)
[2021-11-13 13:13] VITALS: BP 146/76; PULSE 86
--- NOTE | 2021-11-15 13:55 | CR ---
EXAM: XR CHEST 1 VIEW LOCATION: [facility] Sequence DATE/TIME: 11/13/2021 8:58 AM INDICATION: Cough COMPARISON: None. IMPRESSION: Cardiomediastinal silhouette is normal. Normal vasculature. Lungs and pleural spaces are clear. SIGNED BY: Frank Lewis MD 11/15/2021 12:48 PM [facility]
== END 2021-11-13 13:46 | disposition home or self-care (01) ==
LOC: JD.ED 08:17
DX: U07.1 COVID-19 (principal); E78.00 Pure hypercholesterolemia, unspecified; I10 Essential (primary) hypertension; E11.9 Type 2 diabetes mellitus without complications; Z87.891 Personal history of nicotine dependence; Z79.899 Other long term (current) drug therapy; Z79.84 Long term (current) use of oral hypoglycemic drugs; Z79.82 Long term (current) use of aspirin
CPT/HCPCS: 0241U; 36415; 71045; 80053; 82728; 83615; 85025; 86140; 99283; J7050; M0245; Q0245

== ENCOUNTER → 2023-03-14 | Day surgery (SDC) | payer MEDICARE, OTHER ==
[~2023-03-14] MED LIST changes: +Lidocaine 1% 4 ML ONE; +Propofol 200 MG/20 ML SDV ONE; +Sodium Chloride 0.9% 10 ML Syringe FLUSH SCH
[2023-03-14 08:51] VITALS: BP 118/82; PULSE 72
== END | disposition home or self-care (01) ==
LOC: JD.SDS 06:47
PROVIDERS: ATTEND Surgery
DX: Z12.11 Encounter for screening for malignant neoplasm of colon (principal); K64.8 Other hemorrhoids; I10 Essential (primary) hypertension; E78.00 Pure hypercholesterolemia, unspecified; G47.00 Insomnia, unspecified; M17.0 Bilateral primary osteoarthritis of knee; M06.9 Rheumatoid arthritis, unspecified; E11.9 Type 2 diabetes mellitus without complications; Z86.010 Personal history of colon polyps; Z79.84 Long term (current) use of oral hypoglycemic drugs; Z79.899 Other long term (current) drug therapy; Z98.890 Other specified postprocedural states; Z87.891 Personal history of nicotine dependence
CPT/HCPCS: 82947; G0105; J2704; J7120; J3490